=== PATIENT | male | born 1945 | race Caucasian/White ===

== ENCOUNTER 2023-03-31 12:25 | Outpatient (REF) | payer MEDICARE, SELFPAY ==
--- NOTE | ~2023-03-31 | XR_ITS ---
EXAMINATION: XR AP STANDING KNEES, BILATERAL XR KNEE, LEFT CLINICAL INFORMATION: Knee pain. COMPARISON: None. TECHNIQUE: AP standing view of both knees and 2 views (lateral and sunrise) of the left knee. FINDINGS: Patient status post left total knee arthroplasty. Hardware appears intact. No acute fractures identified. No dislocation is evident. There is a small right knee effusion. Prominent vascular calcifications present. Medial and lateral joint space compartments of the right knee appear unremarkable. There is a 1 mm calcific density seen overlying the lateral joint space compartment of the right knee and on this single view, I cannot tell if this may represent vascular calcification versus possible loose body. XR/XR knee LT 2V IMPRESSION: Status post left total knee arthroplasty with small left knee effusion. 1 mm calcific density seen only on AP view of the right knee overlying the lateral joint space compartment which may be within the soft tissues or possible loose body.
--- NOTE | ~2023-03-31 | XR_ITS ---
EXAMINATION: XR AP STANDING KNEES, BILATERAL XR KNEE, LEFT CLINICAL INFORMATION: Knee pain. COMPARISON: None. TECHNIQUE: AP standing view of both knees and 2 views (lateral and sunrise) of the left knee. FINDINGS: Patient status post left total knee arthroplasty. Hardware appears intact. No acute fractures identified. No dislocation is evident. There is a small right knee effusion. Prominent vascular calcifications present. Medial and lateral joint space compartments of the right knee appear unremarkable. There is a 1 mm calcific density seen overlying the lateral joint space compartment of the right knee and on this single view, I cannot tell if this may represent vascular calcification versus possible loose body. XR/XR knee standing BI IMPRESSION: Status post left total knee arthroplasty with small left knee effusion. 1 mm calcific density seen only on AP view of the right knee overlying the lateral joint space compartment which may be within the soft tissues or possible loose body.
== END 2023-03-31 12:26 | disposition home or self-care (01) ==
LOC: HO.HOSX 12:25
PROVIDERS: PCP Internal Medicine; Visit Provider Orthopaedic Surgery
DX: M25.511 Pain in right shoulder (principal); M25.811 Other specified joint disorders, right shoulder; M17.0 Bilateral primary osteoarthritis of knee; Z79.899 Other long term (current) drug therapy
CPT/HCPCS: 20610; 73560; 73565; J3301

== ENCOUNTER 2023-06-18 09:40 | Outpatient (AMB) | payer OTHER, SELFPAY ==
--- NOTE | 2023-06-18 09:42 | A.OFFVIS_ITS ---
Intake Intake Visit Reasons: OV-Right shoulder injection-last injection 03/31/23 Intake Note: Pt presents to the office today for a right shoulder injection. Patients last injection was 03/31/23. Pt states after his last injection he felt relief but within the past week it has started to get uncomfortable especially when he sleeps on that shoulder. The patient states that he did undergo right shoulder surgery by Dr. Garg many years ago. He got fairly good relief from that surgery. He reports stiffness when trying to lift his right hand above shoulder height. He has done physical therapy which aggravated his pain. He has also tried Tylenol and anti-inflammatory medicines which gave him minimal relief. Allergies erythrosine sodium [Erythrosine] Allergy (Unknown, Unverified 06/18/23 09:42) UNKNOWN Medication List - Last Reconciled 06/18/23 by Ubaldo Diehl MD tamsulosin 0.4 mg PO DAILY [facility] Surgical History History of left knee replacement (04/14/22) Social History (Updated 06/18/23 @ 10:00 by Barbara Reyes MA) Household Members: Spouse Housing: House Alcohol intake: never Patient Tobacco Use Status: Never used Tobacco Use of substances other than those prescribed or required for medical reasons: No service: Yes ([employer]) Current occupational status: retired Physical Exam Const Other: Well-nourished well-developed very friendly male awake alert and oriented x3 in no acute distress Extrem Other: Bilateral upper extremity examination shows good capillary refill, no skin lesions noted, normal sensation light touch Right shoulder examination shows decreased passive and active range of motion when compared to his left shoulder, 5/5 strength with supraspinatus testing, positive impingement signs, tenderness over his acromioclavicular joint, no instability Office Procedures Joint Injection/Drain Joint Injection/Drain Primary Site: right shoulder Prep: site was prepped using aseptic technique Injected: 40 mg of, Kenalog and 1% plain lidocaine Procedure: The patient tolerated the procedure well Coding 74054 - Large joint Procedure code (CPT) selection complete Results Reviewed Results Reviewed: 06/18/23 10:22 Lidocaine HCl 2 % MPF [Xylocaine 2 % MPF] 5 ml .ROUTE .STK-MED ONE Triamcinolone Acetonide [Kenalog-40] 40 mg .ROUTE .STK-MED ONE X-rays of the patient's right shoulder show moderate glenohumeral joint degenerative changes, a type 2 acromion, severe acromioclavicular joint narrowing, no acute bony abnormalities Assessment & Plan Assessment & Plan (1) Impingement of right shoulder: Code(s): M25.811 - Other specified joint disorders, right shoulder Plan: Mr. Schrader presents with progressively worsening right shoulder pain and stiffness due to impingement syndrome, acromioclavicular joint arthritis, glenohumeral joint arthritis and adhesive capsulitis. I had a lengthy discussion with the patient regarding the treatment options. The risks and benefits of a cortisone injection were discussed at length with the patient. The patient wished to proceed. He tolerated the injection well. He will continue with his home stretching program to prevent further stiffness. He will follow up with me on an as-needed basis should his symptoms not plateau at an unacceptable level over the next few months. If he fails continued non operative treatments we will further discuss the risks and benefits of right shoulder surgery. That surgery would most likely involve right shoulder diagnostic arthroscopy with distal clavicle excision, acromioplasty, capsular release and manipulation under anesthesia. Feel free to call me at any time should questions regarding his orthopedic management arise. I spent 22 minutes in reviewing the patient's records and imaging studies, seeing the patient and documenting in the medical record. Orders: Orders XR shoulder RT min 2V Today M25.511 - Pain in right shoulder AMB Joint Injection/Aspiration Today M25.811 - Other specified joint disorders, right shoulder Coding Level of Care Code Est Pt Level 2 (80859) Diagnoses Impingement of right shoulder M25.811 CPT Codes Coding - Large joint: 60218 - Large joint ([id number])
== END 2023-06-18 10:40 | disposition home or self-care (01) ==
PROVIDERS: PCP Internal Medicine; Visit Provider Orthopaedic Surgery
DX: M25.811 Other specified joint disorders, right shoulder (principal)
CPT/HCPCS: 20610; 99214

== ENCOUNTER 2023-06-18 17:18 | Outpatient (REF) | payer OTHER, SELFPAY ==
--- NOTE | ~2023-06-18 | XR_ITS ---
EXAMINATION: XR SHOULDER, RIGHT CLINICAL INFORMATION: Pain. COMPARISON: None available. TECHNIQUE: AP neutral and scapular Y views of the right shoulder are submitted. FINDINGS: There is bony demineralization. The glenohumeral joint is intact and shows moderately severe osteoarthritic change. There is widening of the acromioclavicular interval to 1.5 cm. The coracoclavicular interval is intact. No fracture or dislocation is seen. No soft tissue calcifications or foreign body is seen. There is no right pneumothorax. XR/XR shoulder RT min 2V IMPRESSION: 1. Findings are consistent with a right acromioclavicular separation injury. 2. There is moderately severe osteoarthritic change of the right glenohumeral joint.
== END 2023-06-18 17:19 | disposition home or self-care (01) ==
LOC: HO.HOSX 17:18
PROVIDERS: Visit Provider Orthopaedic Surgery
DX: M25.511 Pain in right shoulder (principal); M25.811 Other specified joint disorders, right shoulder; Z79.899 Other long term (current) drug therapy
CPT/HCPCS: 20610; 73030; J3301

== ENCOUNTER 2025-04-25 10:49 | Outpatient (AMB) | payer OTHER, SELFPAY ==
--- OUTSIDE RECORDS SUMMARY | 2024-11-03 09:45 | XMS_ITS ---
Author Organization [facility] Address [address] [place] [phone] Care Team Providers Care Counseling Services Director Name Role Phone Nato Barragan Primary Care Provider REASON FOR VISIT 2m f/u moca Encounters Encounter Location Date Provider Diagnosis Nato Barragan MD [address] [facility] [address] [place] [phone] 11/03/2024 Nato Barragan Plan Of Treatment Next Appt Details Provider Name:Nato Barragan , 05/15/2025 02:00:00 PM, [address] [place] [address], [phone], Provider Name:Nato Barragan , 09/06/2025 11:00:00 AM, [address] [place] [address], [phone], Progress Notes * Fabian SCOTT JrDOB: 1945 (80 yo M)Acc No.[id number]:11/03/2024 Progress Notes Patient: Bakari Fabian QUINTANILLA Jr Provider: Christaine Barragan MD :1945 A ge:79 Y S ex:Male Date:11/03/2024 Address:[address] [place] [address] [place], [id number] Subjective: * Chief Complaints: * 1 . [...] Electronic signature of Kaelyn Barragan MD on 04/25/2025 at 12:05 PM EDT Sign off status: Pending * Provider: Christiane Barragan MD Date: 0 11/03/2024 Generated for Wenceslao garcia/Manolo/Missyitting on: 0 04/25/2025 12:05 PM EDT
--- NOTE | 2025-04-25 10:51 | A.OFFVIS_ITS ---
Vital Signs 04/25/25 10:56 Height 5 ft 9 in Weight 174 lb BMI 25.7 Intake Visit Reasons: Right shoulder pain and stiffness Intake Note: Fabian is an 80 year old male who presents with complaints of right shoulder pain and stiffness. He describes his pain as sharp in nature. His pain has gotten worse over the last few years in spite of continued non operative treatments. He has failed the last 6 weeks of conservative treatment which has included Tylenol, anti-inflammatory medicines, a home exercise program and physical therapy exercises. He has had multiple injections in the past. The most recent injection gave minimal relief. At this point his right shoulder pain and stiffness or interfering with his activities of daily living and his ability to sleep well through the night. Allergies erythrosine sodium (Erythrosine) Allergy (Unknown, Verified 04/25/25 10:53) UNKNOWN Medication List - Last Reconciled 04/25/25 by Ubaldo Diehl MD amoxicillin 2,000 mg (4 x 500 mg) PO ONCE 21 days diclofenac sodium 75 mg PO BID tamsulosin 0.4 mg PO DAILY [facility] Surgical History History of left knee replacement (04/14/22) Social History Household Members: Spouse Housing: House Alcohol intake: never Patient Tobacco Use Status: Never used Tobacco service: Yes ([employer]) Current occupational status: retired Physical Exam Vital Signs: BMI result Body Mass Index 25.7 Const Other: Well-nourished well-developed very friendly male awake alert and oriented x3 in no acute distress Extrem Other: Right shoulder examination shows decreased active and passive range of motion when compared to his left shoulder, 4+ out of 5 strength with supraspinatus testing, positive impingement signs, tenderness over his acromioclavicular joint, no instability Results Reviewed Results Reviewed: X-rays of the patient's right shoulder show severe acromioclavicular joint narrowing, moderate glenohumeral joint degenerative changes, a type 2 acromion, no acute bony abnormalities Assessment & Plan Assessment & Plan (1) Impingement of right shoulder: Code(s): M25.811 - Other specified joint disorders, right shoulder Category: Medical Plan Mr. Schrader presents with progressively worsening right shoulder pain and stiffness due to impingement syndrome, acromioclavicular joint arthritis, glenohumeral joint arthritis and adhesive capsulitis. I had a lengthy discussion with the patient regarding the treatment options. He wishes to hold off on total shoulder replacement surgery for as long as possible. I agree with this plan. We did discuss the risks and benefits of right shoulder arthroscopic surgery. He wishes to proceed. He does understand that he may not get 100% relief of his symptoms depending on the severity of his glenohumeral joint degenerative changes. Surgery will involve right shoulder arthroscopic distal clavicle excision, right shoulder arthroscopic acromioplasty, right shoulder arthroscopic capsular release and right shoulder manipulation under anesthesia. The patient will follow-up as instructed. Feel free to call me at any time should questions regarding his orthopedic management arise. I spent 21 minutes in reviewing the patient's records and imaging studies, seeing the patient and documenting in the medical record. Coding Level of Care Code Est Pt Level 3 (07506) Complex EM visit Add On G2211 Diagnoses Impingement of right shoulder M25.811
[2025-04-25 10:56] VITALS: BMI 25.7
--- OUTSIDE RECORDS SUMMARY | 2025-04-25 12:06 | XMS_ITS | Patient Health Record ---
Author Organization [facility] Address [address] [facility] [place] [address] Care Team Providers Care Precision Machine Operator Name Role Phone Nato Barragan MD Primary Care Provider Unavail able Steven Willett Unavailable [phone] Reason For Referral No Information Medications Medication SIG (Take, Route, Frequency, Duration) Notes Start Date End Date Status Tamsulosin HCl Activ e Diclofenac Sodium 75 MG 1 tablet as need ed with food Orally Twice a day; Duration: 30 07/19/2024 Not-Taking Diclofenac Sodium 75 MG 1 tablet with fo od Orally Twice a day; Duration: 30 days 12/08/2024 Active Omeprazole Active Social History Tobacco Use: Social History Observation Description Date Details (start date - stop date) Former Smoker NA - NA Tobacco Use/Smoking Question Answer Notes Are you a: former smoker Additional Findings: Tobacco Non-User Current no n-smoker Alcohol Screen Question Answer Notes Did you have a drink containing alcohol in the p ast year? No Points 0 Interpretation Negative Tobacco use other than smoking: Question Answer Notes Are you an other tobacco user? No Problems Problem Type SNOMED Code ICD Code Onset Dates Problem Status W/U Status Risk Notes Problem Hallux valgus of right foot (0863925062) Hallux valgus of right foot (M20.11) Active confirmed Problem Hallux valgus of left foot (3036803442) Hallux valgus of left foot (M20.12) Active confirmed Vital Signs Height 5 ft 9 in in 08/09/2024 Weight 168 lbs 08/09/2024 BMI 24.81 kg/m2 08/09/2024 Encounters Encounter Location Date Provider Diagnosis [facility] [address] 07/19/2024 Steven Willett Hallux valgus of left foot M20.12 ; Hallux valgus of right foot M20.11 ; Other bursitis, not elsewhere classified, left ankle and foot M71.572 ; Other bursitis, not elsewhere classified, right ankle and foot M71.571 ; Pain in left foot M79.672 and Right foot pain M79.[address] [facility] [phone] 08/09/2024 Steven Willett Hallux valgus of left foot M20.12 ; Hallux valgus of right foot M20.11 ; Pain in left foot M79.672 and Right foot pain M79.671 [facility] [address] [place] [address] 07/08/2024 Steven Willett [address] [address] 12/08/2024 Steven Willett [facility] [address] [place] [phone] 12/12/2024 Steven Willett Assessments Encounter Date Diagnosis (ICD Code) Assessment Notes Treatment Notes Treatment Clinical Notes Section Notes 07/19/2024 Hallux valgus of right foot (ICD-10 - M20.11) 07/19/2024 Hallux valgus of left foot (ICD-10 - M20.12) 08/09/2024 Hallux valgus of right foot (ICD-10 - M20.11) 08/09/2024 Hallux valgus of left foot (ICD-10 - M20.12) 07/19/2024 Other bursitis, not elsewhere classified, left ankle and foot (ICD-10 - M71.572) 08/09/2024 Pain in left foot (ICD-10 - M79.672) 08/09/2024 Right foot pain (ICD-10 - M79.671) 07/19/2024 Other bursitis, not elsewhere classified, right ankle and foot (ICD-10 - M71.571) 07/19/2024 Pain in left foot (ICD-10 - M79.672) 07/19/2024 Right foot pain (ICD-10 - M79.671) 08/09/2024 Other Pt d/c diclofenac after 2 days that I had prescribed secondary to advice from PCP. Plan Of Treatment No Information Insurance Providers Payer Name Payer Address Payer Phone Subscriber Number Group Number Insured Name Patient Relationship to Insured Coverage Start Date Coverage End Date [employer] [place] [employer]vantage [facility] [address] [place] [address] [phone] [id number] Fabian Last Self - patient is the insured Medical (General) History Medical History History ICD Code Arthritis Back,Hip,and Knee pain Broken bones Cataracts Numbness Reflux ( GERD) sinusitis Measles Mumps Chicken pox Joint implants/screws Spondylosis Radiculopathy Surgical History Surgery Date(Month/Year) Fracture Tibia 1974 Torn Tendon Right Wrist 1979 [employer]ocate [employer] Nerve Right Elbow Deviated Septum Repair GERD Hiatal Hernia 2000 Total Hip Replacement L & R 07/10/2022,0 04/10/2011 Lumbar Fusion Impingement of rotator cuff, right Repair of 2 abdominal Hernias 2015,2016 Torn Retina Repair Chalazion Repair Right Eyelid Total Knee Replacement 2020 cataract surgery
--- OUTSIDE RECORDS SUMMARY | 2025-04-25 12:06 | XMS_ITS | Clinical Summary ---
Author Organization [facility] Address [address] [place] [address] Care Team Providers Care Mine Car Mechanic Name Role Phone Nato Barragan MD Primary Care Provider Allergies No known active allergies Medications Medication Sig Dispensed Refills Start Date End Date Status omeprazole (PriLOSEC) 20 MG capsule Take 20 mg by mouth daily. 0 Active aspirin EC 81 MG tablet Take 81 mg by mouth daily. 0 Active baclofen (LIORESAL) 10 MG tablet baclofen 10 mg tablet 0 Active celecoxib (CeleBREX) 200 MG capsule celecoxib 200 mg capsule 0 Active gabapentin (NEURONTIN) 300 MG capsule gabapentin 300 mg capsule 0 Active lidocaine (LIDODERM) 5 % lidocaine 5 % topical patch Apply 1 patch by transdermal route once daily (may wear up to 12hours.) 0 Active predniSONE (DELTASONE) tablet 10 mg prednisone 10 mg tablet 0 Active sulindac (CLINORIL) 200 MG tablet sulindac 200 mg tablet TK 1 T PO BID WITH FOOD 0 Active tiZANidine (ZANAFLEX) 2 MG tablet tizanidine 2 mg tablet TK 1 T PO Q NIGHT FOR 3 DAYS THEN INCREASE TO 1 T PO BID 0 Active clotrimazole-betame thasone (LOTRISONE) cream clotrimazole-betame thasone 1 %-0.05 % topical cream 0 Active gentamicin (GARAMYCIN) 0.3 % ophthalmic solution gentamicin 0.3 % eye drops USE 1 DROP IN EACH EYE Q 2 H FOR 24 H THEN TID FOR 6 DAYS 0 Active meclizine (ANTIVERT) 25 MG tablet 0 05/28/2021 Active ciprofloxacin (CIPRO) 500 MG tablet 0 07/29/2021 Active tamsulosin (FLOMAX) 0.4 MG CAPS 0 08/05/2021 Active amoxicillin (AMOXIL) 500 MG tablet Take 4 tabs 1 hour prior to dental appointment 20 tablet 3 04/29/2022 Active oxyCODONE (ROXICODONE) 5 MG immediate release tablet Take 1-2 tabs every 8-10 hours as needed for pain 30 tablet 0 05/28/2022 Active oxyCODONE (ROXICODONE) 5 MG immediate release tablet Take 1 tab every 8 hours as needed for pain 35 tablet 0 06/10/2022 Active Active Problems Problem Noted Date Diagnosed Date Lumbar back pain with radicu lopathy affecting left lower extremity 03/14/2021 Postoperative follow-up 01/08/2021 Traumatic tear of medial men iscus of knee, left, initial encounter 09/07/2020 Patellofemoral arthritis of left knee 09/07/2020 Arthritis of right glenohumeral joint 11/08/2019 Arthritis of right glenohumeral joint 04/06/2019 Family History Medical History Relation Name Comments Hypertension Father Diabetes Mother Heart disease Mother Hypertension Sister Relation Name Status Comments Father Mother Sister Social History Tobacco Use Types Packs/Day Years Used Date Smoking Tobacco: Former Cigarettes Q uit: 1968 Smokeless Tobacco: Never Alcohol Use Standard Drinks/Week Comments No 0 (1 standard drink = 0.6 oz pur e alcohol) Sex and Gender Information Value Date Recorded Sex Assigned at Not on file Gender Identity Not on file Sexual Orientation Not on file Job Start Date Occupation Industry Not on file Not on file Not on file Last Filed Vital Signs Vital Sign Reading Time Taken Comments Blood Pressure - - Pulse - - Temperature - - Respiratory Rate - - Oxygen Saturation - - Inhaled Oxygen Concentration - - Weight 80.7 kg (178 lb) 03/22/2021 9:26 AM EDT Height 172.7 cm (5' 8 ) 03/22/2021 9:26 AM EDT Body Mass Index 27.06 03/22/2021 9:26 AM EDT Plan of Treatment Health Maintenance Due Date Last Done Comments COVID-19 Vaccine (#1) 1945 Depression Screening 1955 Preventative Health Evaluation 1961 DTap / Tdap / Td (1 - Tdap) 1962 Shingrix-Zoster Vaccine (1 of 2) 1993 Fall Risk Assessment 2008 Pneumococcal Vaccine (1 of 1 - PCV) 2008 RSV Adult > 60+ Yrs or Pregn ant (1 - 1-dose 75+ series) 2018 Influenza Vaccine (#1) 2025 Hepatitis B Vaccines Aged Out No long er eligible based on patient's age to complete this topic RSV Ped < 20 months Aged Out No longe r eligible based on patient's age to complete this topic Care Teams Mine Car Mechanic Relationship Specialty Start Date End Date Nato Barragan MD [address] [address] PCP - General Internal Medicine 03/10/19
--- OUTSIDE RECORDS SUMMARY | 2025-04-25 12:06 | XMS_ITS ---
Author Name [facility] Organization Unknown Encounters Encounter Type Encounter Reason Primary Diagnosis Location Date Ambulatory [facility] 02/23/2023 Ambulatory [facility] 01/26/2023
--- OUTSIDE RECORDS SUMMARY | 2025-04-25 12:06 | XMS_ITS | Patient Health Record ---
Author Organization [facility] Billing Info Address [address] [place] [id number] Support Name Relationship Address Phone Fabian Schrader Jr Guarantor Unknown Reason For Referral No Information Problems Problem Type SNOMED Code ICD Code Onset Dates Problem Status W/U Status Risk Notes Problem 27911089 Impacted cerumen (380.4) Active confirmed Migrated-Pr oblemList-3 [facility]- 01/13/2014 Plan Of Treatment No Information Insurance Providers Payer Name Payer Address Payer Phone Subscriber Number Group Number Insured Name Patient Relationship to Insured Coverage Start Date Coverage End Date [place]ARE [place] PART B [address] [facility] A[employer] VEGA [id number] Fabian Schrader Jr Self - patient is the insured 3 3 [employer] [facility]ICARE [facility] [place] T [address] [address] [place], [place] [id number] Fabian Schrader Jr Self - patient is the insured 3 3
--- OUTSIDE RECORDS SUMMARY | 2025-04-25 12:06 | XMS_ITS | Data Portability ---
Author Organization [facility] PAIN OFFICE Address [address] [facility],[address] [place] [address] Care Team Providers Care Interior Design Assistant Name Role Phone MARYA YOUNG Primary Care Provider Assessment Encounter Date Assessment Date Assessment LastModified by Organization Details LastModified Time 12/05/2014 12/05/2014 Fabian Schrader is a 69 year old man with complaints of pain and numbness in the anterior aspect of his left thigh. He is S/P two back surgeries. EMG shows bilateral left more than right chronic L4-S1 radiculopathy. A left lateral femoral cutaneous mononeuropathy cannot be ruled out. Xray of his Lumbar spine shows minimal instability across T12-L1 , L1-2 and L2-L3. Small armijo rods with screws between L4-S1 is present. Multilevel degenerative disc disease is present.He is here for a follow up after aquatic physical therapy. He states he has been having increased pain in his right lower extremity after physical therapy. We reviewed various options. He is interested in trialing Gralise . I have given him a sample and detailed instruction on taking the medication. He will call in a week and will follow up in one month to assess the benefits. I have also advised him to discontinue aquatic PT presently. [email or web address] Not available 12/08/2014 15:53:20 02/15/2015 02/15/2015 Fabian Schrader is a 69 year old man with complaints of pain and numbness in the anterior aspect of his left thigh. He is S/P two back surgeries. EMG shows bilateral left more than right chronic L4-S1 radiculopathy. A left lateral femoral cutaneous mononeuropathy cannot be ruled out. Xray of his Lumbar spine shows minimal instability across T12-L1 , L1-2 and L2-L3. Small armijo rods with screws between L4-S1 is present. Multilevel degenerative disc disease is present.He is here for a follow up after trialing gralise 600mg 2 tablets with the evening meal. His insurance will not cover the medication despite appeals. We discussed other options . 1. Tizanidine - 2mg bid 2. Topamax is also another option. He was given a weaning schedule for the gralise. [email or web address] Not available 02/16/2015 11:42:43 03/14/2015 03/14/2015 Fabian Schrader is a 70 year old man with complaints of pain and numbness in the anterior aspect of his left thigh. He is S/P two back surgeries. EMG shows bilateral left more than right chronic L4-S1 radiculopathy. A left lateral femoral cutaneous mononeuropathy cannot be ruled out. Xray of his Lumbar spine shows minimal instability across T12-L1 , L1-2 and L2-L3. Small armijo rods with screws between L4-S1 is present. Multilevel degenerative disc disease is present.He is here for a follow up . He states his pain is presently tolerable and he defers from further membrane stabilizer trials. He has pain benefit from Lidoderm patches. I will prescribe the same for him. He will follow up as needed. [email or web address] Not available 03/14/2015 11:28:13 04/25/2016 04/25/2016 aFbian Schrader is [id number] old man with new onset right sided low back pain radiating into the right groin and buttock region. On exam ,he has tenderness in the Right sacroiliac joint with a positive Obi's test, Amarilis's and ASIS test.Xray of his Lumbar spine shows minimal instability across T12-L1 , L1-2 and L2-L3. Small armijo rods with screws between L4-S1 is present . Trial of Right sacroiliac joint injection under fluoroscopic guidance was recommended. The risks and benefits of the procedure were discussed in detail. He wishes to proceed. An appointment has been booked for the same. He needs a regional dedicated truck driver on the day of the procedure. I will also order X-rays of the pelvis. Addendum: X-ray of the Pelvis shows mild degenerative changes of the sacroiliac joint and stable intact bilateral hip arthroplasties. [email or web address] Not available 04/28/2016 14:03:16 05/13/2016 05/13/2016 Fabian Schrader is [id number] old man with new onset right sided low back pain radiating into the right groin and buttock region. On exam ,he has tenderness in the Right sacroiliac joint with a positive Obi's test, Amarilis's and ASIS test.Xray of his Lumbar spine shows minimal instability across T12-L1 , L1-2 and L2-L3. Small armijo rods with screws between L4-S1 is present . X-ray of the Pelvis shows mild degenerative changes of the sacroiliac joint and stable intact bilateral hip arthroplasties. He is here for a trial of Right sacroiliac joint injection under fluoroscopic guidance. The risks and benefits of the procedure were discussed in detail. He wishes to proceed. He will follow up in four weeks. [email or web address] Not available 05/13/2016 14:28:09 Plan of Treatment Reminders Order Date Submit Date Provider Last Modified By Organization Details Last Modified Time Details Appointments None recorded. Lab None recorded. Referral None recorded. Procedures None recorded. Surgeries None recorded. Imaging None recorded. Medication Orders lidocaine 5 % topical patch 2014 015 [id number], [address] [place] [address], [id number], 6 10:32:58 tizanidine 2 mg tablet 2014 015 [id number], [address] [place] [address], [id number], 5 10:07:37 Patient TargetsNo targets recorded. Patient Instructions Encounter Date Encounter Id Patient Instructions Last Modified By Organization Details Last Modified Time 12/05/2014 [id number] He was advised against bed rest lasting longer than four days and to continue activities as tolerated. [email or web address] Not available 12/08/2014 15:50:10 02/15/2015 [id number] He was advised against bed rest lasting longer than four days and to continue activities as tolerated. [email or web address] Not available 02/16/2015 11:38:27 03/14/2015 [id number] He was advised against bed rest lasting longer than four days and to continue activities as tolerated. tmanikantan Not available 03/14/2015 11:25:13 04/25/2016 [id number] He was advised against bed rest lasting longer than four days and to continue activities as tolerated. [email or web address] Not available 04/28/2016 14:03:38 05/13/2016 [id number] He was advised against bed rest lasting longer than four days and to continue activities as tolerated. [email or web address] Not available 05/13/2016 14:25:31 Reason for Referral None Reported. Results Created Date Observation Date Name Description Value Unit Range Abnormal Flag Note LastModifiedBy Organization Detail LastModifiedTime 04/25/20 16 04/25/2016 XR, pelvi s, 1 or 2 view No observ ation record ed. [facility] [address] [place] [address], [place], [address], 05/13/2016 14:25:31 Result Notes None recorded. Problems Name Problem SNOMED Code Status Onset Date Resolution Date Notes Provider Name and Address Organization Details Recorded Time Lumbosacral spondylosis without myelopathy 80462676 Active Winsome salas MD [address] [facility] , [address], [place], [address], [place] [facility] 6 14:24:57 Lumbar post-laminecto my syndrome 160792010 Gentry salas MD [address] [facility] , [address], [place], [address], [place] [facility] 6 14:28:09 Meralgia paresthetica [id number] Gentry salas MD [address] [facility] , [address], [place], [address], [place] [facility] 6 14:24:57 Lumbosacral radiculitis [id number] Gentry salas MD [address] [facility] , [address], [place], [address], [place] [facility] 6 14:24:57 Inflammation of sacroiliac joint 47723416 Active Winsome salas MD [address] [facility] , [address], [place], [address], [place] [facility] 6 14:28:09 Problem Notes None recorded. Procedures Surgical History Date Name Laterality Status Provider Name and Address Organization Details Recorded Time 6 Sacroiliac Joint Steroid Injections, using Fluoroscopy completed Winsome Badlwin MD [address] [facility] , [address], [place], [address], [place] [facility] 05/13/2016 14:28:09 4 Lateral Femoral Cutaneous Nerve Block under ultrasound guidance completed Winsome Baldwin MD [address] [facility] , [address], [place], [address], [place] [facility] 10/23/2014 11:07:43 4 Lateral Femoral Cutaneous Nerve Block under ultrasound guidance completed Winsome Baldwin MD [address] [facility] , [address], [place], [address], [place] [facility] 09/20/2014 11:16:34 Lumbar Fusion completed Uzma Glover [place] [facility] 09/14/2014 10:13:23 Other completed Uzma Glover [place] [facility] 09/14/2014 10:14:54 Other completed Uzma Glover [place] [facility] 09/18/2014 15:52:52 Other completed Uzma Glover [place] [facility] 09/18/2014 15:52:52 Joint Replacement completed Uzma Glover [place] [facility] 09/18/2014 15:52:52 Other completed Uzma Glover [place] [facility] 09/18/2014 15:52:52 Other completed Uzma Glover [place] [facility] 09/18/2014 15:52:52 Other completed Uzma Glover [place] [facility] 09/18/2014 15:52:52 Imaging Results None recorded. Procedure Notes None recorded. Medical Equipment None Reported. Allergies No known drug allergies Medications Name Sig Start Date Stop Date Status Note LastModified by Organization Details LastModified Time celecoxib 200 mg capsule active Not Available Not Available Not Available amoxicillin 500 mg capsule active Not Available Not Available Not Available prednisone 10 mg tablet active Not Available Not Available Not Available tizanidine 2 mg tablet TK 1 T PO Q NIGHT FOR 3 DAYS THEN INCREASE TO 1 T PO BID active Not Available Not Available No t Available aspirin 81 mg tablet,delay ed release Take 1 tablet every day by oral route. active Not Available Not Available No t Available tramadol 50 mg tablet active Not Available Not Available No t Available hydromorphon e 2 mg tablet active Not Available Not Available Not Available gentamicin 0.3 % eye drops USE 1 DROP IN EACH EYE Q 2 H FOR 24 H THEN TID FOR 6 DAYS active Not Available Not Available No t Available baclofen 10 mg tablet active Not Available Not Available No t Available clotrimazole -betamethaso ne 1 %-0.05 % topical cream active Not Available Not Available Not Available lidocaine 5 % topical patch APPLY FOR 12 HOURS ON AND 12 HOURS OFF active Not Available Not Available No t Available gabapentin 300 mg capsule active Not Available Not Available Not Available omeprazole 20 mg capsule,dawna yed release Take 1 capsule every day by oral route. active Not Available Not Available No t Available sulindac 200 mg tablet TK 1 T PO BID WITH FOOD active Not Available Not Available No t Available Chioma C 500 mg-200 mg tablet Take by oral route. active Not Available Not Available No t Available Vitamin D3 daily active Not Available Not Av ailable Not Available krill oil daily active Not Available Not Felisa ilable Not Available Vita Allergy 180 mg tablet Take 1 tablet every day by oral route. active Not Available Not Available No t Available Gralise 600 mg tablet,exten ded release active PA initiat ed. (kf) PA denied and appeal. (kf) Md sent appeal. (kf) Not Available Not Available Not Available Multi Vitamin active Not Available Not Available Not Available Vitals Date Recorded Heart rate Oxygen saturation Oxygen saturation in Arterial blood by Pulse oximetry Systolic And Diastolic Provider Name and Address Organization Details Last Updated DateTime 12/05/2014 66 /min 98 % 98 % 142/70 mm[Hg] U[facility] Landers [facility] 5 15:26:20 Date Recorded Oxygen saturation Oxygen saturation in Arterial blood by Pulse oximetry Heart rate Systolic And Diastolic Provider Name and Address Organization Details Last Updated DateTime 02/15/2015 97 % 97 % 70 /min 143/90 mm[Hg] [facility] Landers [facility] 5 11:58:21 Date Recorded Oxygen saturation Oxygen saturation in Arterial blood by Pulse oximetry Heart rate Systolic And Diastolic Provider Name and Address Organization Details Last Updated DateTime 03/14/2015 99 % 99 % 87 /min 170/88 mm[Hg] Uzma Glover [facility] 5 10:07:37 Date Recorded Heart rate Oxygen saturation Oxygen saturation in Arterial blood by Pulse oximetry Systolic And Diastolic Provider Name and Address Organization Details Last Updated DateTime 04/25/2016 73 /min 97 % 97 % 131/84 mm[Hg] Uzma Glover [facility] 6 10:32:58 Date Recorded Heart rate Oxygen saturation Oxygen saturation in Arterial blood by Pulse oximetry Systolic And Diastolic Provider Name and Address Organization Details Last Updated DateTime 05/13/2016 67 /min 98 % 98 % 139/82 mm[Hg] Uzma Glover [facility] 6 11:05:55 Social History Question Answer Notes LastModified by Organizat ion Details LastModified Time Tobacco Smoking Status Former Smoker Quit x 40 years Not Available [facility] 07/20/2020 03:16:11 Which Illicit Or Recreational Drugs Have You Used? No [id number] Information not available 07/20/2020 Education 10 [facility] Information no t available 09/14/2014 Live Alone Or With Others? With Others And Son Information not available 09/14/2014 Marital Status Informatio n not available 09/14/2014 How Many Years Have You Smoked Tobacco? 17 [id number] Information not available 07/20/2020 Sex: Unknown Functional Status Question Answer Note LastModified by Organization D etails LastModified Time What is your level of alcohol consumption? None [id number] Information not available 07/20/2020 Are you currently employed? No [id number] Information not available 07/20/2020 Mental Status None recorded. Family History Relationship Description Onset Age of this Age Resolved Age Notes LastModified by Organization Details LastModified Time Mother Heart disease [email or web address] Not available 06/2016 14:25:13 Medical History Condition Response Arthritis Y Past Encounters Encounter ID Performer Location Encounter Start Date Encounter Closed Date Diagnosis/Indication Diagnosis SNOMED-CT Code Diagnosis ICD10 Code Diagnosis Note [id number] Winsome Baldwin MD PAIN OFFICE [address] [place] [address] 09/14/2014 09:45:09 09/18/2014 09:45:13 Lumbar post-laminectomy syndrome 489321374 Lumbosacra l radiculitis 70865782 Lumbosacra l spondylosis without myelopathy 54035235 Meralgia paresthetica 05958874 [id number] Winsome Baldwin MD PAIN OFFICE [address] [place] [address] 09/19/2014 14:26:51 09/20/2014 11:17:32 Lumbosacral spondylosis without myelopathy 94085371 Meralgia paresthetica 55656923 Lumbosacra l radiculitis 04621465 Lumbar post-laminectomy syndrome 970982774 [id number] Winsome Baldwin MD PAIN OFFICE [address] [place] [address] 10/02/2014 09:24:42 10/23/2014 11:09:17 Lumbosacral spondylosis without myelopathy 38062191 Meralgia paresthetica 47516444 Lumbosacra l radiculitis 77165726 Lumbar post-laminectomy syndrome 522834473 [id number] Winsome Baldwin MD PAIN OFFICE [address] [place] [address] 10/26/2014 10:36:47 10/26/2014 14:38:33 Lumbosacral spondylosis without myelopathy 76335323 Meralgia paresthetica 08265504 Lumbosacra l radiculitis 41972092 Lumbar post-laminectomy syndrome 458069837 [id number] Winsome Baldwin MD PAIN OFFICE [address] [place] [address] 12/05/2014 15:24:27 12/08/2014 15:53:31 Lumbosacral spondylosis without myelopathy 81432318 Meralgia paresthetica 88384528 Lumbosacra l radiculitis 12156650 Lumbar post-laminectomy syndrome 387341287 [id number] Winsome Baldwin MD [facility] PAIN OFFICE [address] [facility] [place] [address] 02/15/2015 11:31:59 02/16/2015 11:43:40 Lumbosacral spondylosis without myelopathy 11058712 Meralgia paresthetica 44883603 Lumbosacra l radiculitis 69943419 Lumbar post-laminectomy syndrome 841861010 [id number] Winsome Baldwin MD [facility] PAIN OFFICE [address] [facility] [place] [address] 03/14/2015 09:59:05 03/14/2015 11:28:40 Lumbosacral spondylosis without myelopathy 20002200 Meralgia paresthetica 40417876 Lumbosacra l radiculitis 09775798 Lumbar post-laminectomy syndrome 947364535 [id number] Winsome Baldwin MD [facility] PAIN OFFICE [address] [facility] [address] 04/25/2016 10:06:02 04/28/2016 14:03:59 Inflammation of sacroiliac joint 08473592 M46.1 Lumbar post-laminectomy syndrome 222328234 M96.1 [id number] Winsome Baldwni MD [facility] PAIN OFFICE [address] [facility] [address] 05/13/2016 08:40:56 05/13/2016 14:30:04 Inflammation of sacroiliac joint 54982446 M46.1 Lumbar post-laminectomy syndrome 796596287 M96.1 Health Concerns Section Related Observation LastModified by Organization Detai ls LastModified Time None Recorded Concern Status LastModified by Organization Details LastModified Time None Recorded Advance Directives Directive None Recorded Payers Insurance Date Sequence Insurance Name Policy Number Policy Armstrong Covered Member ID Armstrong Member ID Guarantor Name 05/10/2016 1 [place] [employer] Fabian Schrader Jr [id number] Fabian Schrader 05/10/2016 2 [place] [id number] Fabian Schrader Jr [id number] Fabian Macrina Notes Date Note Type Note Provider Name and Address Organization Details Recorded Time 12/05/2014 text/html He is here for a follow up. He states he has had 4 visits for aquatic physical therapy. He states he has improvement with his left lower extremity pain after being in the pool. He states he is now noticing increased pain in his right lower extremity after the aquatic PT. He has also been snow shovelling and lifting wood for his fireplace in his living room. He has some numbness in the anterior aspect of his left thigh. He has no history of bladder or bowel incontinence. Winsome Baldwin MD [address] [facility] , [address], [place], [address], [facility] 12/11/2014 08:53:15 02/15/2015 text/html He is here for a follow up. He has been taking Gralise 600mg two tablets with evening meal with good pain benefit. Unfortunately , his insurance will not cover the medication for him. I have appealed the decision and they will not cover the medication. He is here to discuss other options. He continues to have low back pain radiating into both lower extremities, left is greater than right. He has no history of bladder or bowel incontinence. Winsome Baldwin MD [address] [facility] , [address], [place], [address], [facility] 02/20/2015 14:57:12 03/14/2015 text/html He is here for a follow up . He states he had increased pain after weaning off Gralise . His pain is back to baseline now. He states his pain is currently tolerable. He has decided not to trial Tizanidine or Topamax due to side effects he read about online. He states he wants to be clear headed as possible. He is using Lidoderm patches he had at home and the patches have been beneficial for him. He states he is only having occasional muscle spasms and they last about 5 minutes and occur once or twice a week. He has no history of bladder or bowel incontinence. Winsome Baldwin MD [address] [facility] , [address], [place], [address], [facility] 03/29/2015 08:42:35 04/25/2016 text/html He is here for a follow up. He states he has new onset right sided low back pain which radiates into his right buttock region as well as his groin. He states he has been active and doing things around the house. The pain started spontaneously and is becoming greater. Twisting his low back worsens his pain. He has no history of bladder or bowel incontinence. He is S/P back surgery with fusion from L4-S1 levels and bilateral hip replacements. Winsome Baldwin MD [address] [facility] , [address], [place], [address], [place] [facility] 05/01/2016 10:21:25 05/13/2016 text/html He is here for a right sacroiliac joint injection under fluoroscopic guidance Winsome Baldwin MD [address] [facility] , [address], [place], [address], [place] [facility] 05/26/2016 15:36:15
--- OUTSIDE RECORDS SUMMARY | 2025-04-25 12:06 | XMS_ITS | Clinical Summary ---
Author Organization [facility] Address [address] [place] [phone] Phone Care Team Providers Care Bucket Wash Operator Name Role Phone Nato Barragan MD Primary Care Provider [phone] Surgical History Surgery Date Site/Laterality Comments ORIF TIBIA & FIBULA FRACTURES PROCEDURE:ORIF TIBIA & FIBULA FRACTURES WRIST SURGERY PROCEDURE:WRIST SURGERY ELBOW SURGERY PROCEDURE:ELBOW SURGERY HIATAL HERNIA REPAIR PROCEDURE:HIATAL HERNIA REPAIR BACK SURGERY PROCEDURE:BACK SURGERY SHOULDER SURGERY PROCEDURE:SHOULDER SURGERY;COMMENT:impingement or RC KNEE SURGERY PROCEDURE:KNEE SURGERY JOINT REPLACEMENT PROCEDURE:JOINT REPLACEMENT Medical History Medical History Date Comments Arthritis DX:Arthritis Family History Medical History Relation Name Comments Hypertension Father Diabetes Mother Heart disease Mother Hypertension Sister Relation Name Status Comments Father Mother Sister Social History Tobacco Use Types Packs/Day Years Used Date Smoking Tobacco: Former Cigarettes Q uit: 10/05/1967 Smokeless Tobacco: Never Alcohol Use Standard Drinks/Week Comments No 0 (1 standard drink = 0.6 oz pur e alcohol) Sex and Gender Information Value Date Recorded Sex Assigned at Not on file Legal Sex Male 1:31 PM EST Gender Identity Not on file Sexual Orientation Not on file Obstetrics History Plan of Treatment Health Maintenance Due Date Last Done Comments Zoster Vaccines (1 of 2) 1993 RSV Immunization Adult Patients (1 - 1-dose 75+ series) 2018 Cholesterol Screening (Lipid Panel) 09/09/2022 Falls Risk Assessment 09/09/2022 Medicare Annual Wellness Visit 09/09/2022 Social Influencers of Health Screening 09/09/2022 COVID-19 Vaccine ( season) 2024 Depression Screening 10/05/2024 Influenza Vaccine (#1) 2025 4, 08/13/2023, 07/31/2022, Additional history exists DTaP,Tdap,and Td Vaccines (2 - Td or Tdap) 08/13/2033 08/13/2023 Pneumococcal Vaccine: 50+ Years Completed 08/16/2024 HIB Vaccines Aged Out No longer eligi ble based on patient's age to complete this topic HPV Vaccines Aged Out No longer eligi ble based on patient's age to complete this topic Hepatitis A Vaccines Aged Out No long er eligible based on patient's age to complete this topic Hepatitis B Vaccines Aged Out No long er eligible based on patient's age to complete this topic IPV Vaccines Aged Out No longer eligi ble based on patient's age to complete this topic MMR Vaccines Aged Out No longer eligi ble based on patient's age to complete this topic Meningococcal ACWY Vaccine Aged Out N o longer eligible based on patient's age to complete this topic Meningococcal B Vaccine Aged Out No l onger eligible based on patient's age to complete this topic RSV Immunization Patients Under 20 months Aged Out No longer eligible based on patient's age to complete this topic Varicella Vaccines Aged Out No longer eligible based on patient's age to complete this topic Insurance [employer] Advance Directives Documents on File Type Date Recorded Patient 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
== END 2025-04-25 11:15 | disposition home or self-care (01) ==
LOC: HO.HOS 10:49
PROVIDERS: PCP Internal Medicine; Visit Provider Orthopaedic Surgery
DX: M25.811 Other specified joint disorders, right shoulder (principal)
CPT/HCPCS: 99213; G2211

== ENCOUNTER 2025-06-02 11:30 | Day surgery (SDC) | payer MEDICARE, SELFPAY ==
[2025-05-23 13:46] VITALS: BMI 26.8
[2025-06-02] MEDS: Lactated Ringers 1,000 ML 100 ML IVCONT (11:51)
[2025-06-02 11:56] VITALS: BMI 27.1
[2025-06-02 11:59] VITALS: BP 158/61; PULSE 74; RESP 18; TEMP 36.7; O2SAT 98
--- NOTE | 2025-06-02 12:15 | HO.ANESPROP2 ---
Documented by User: Hazel Yost NP 06/01/25 10:26 HPI - Anesthesia Eval Consult details Narrative: 80yo M for Right Shoulder Arthroscopy,distal clavicle excision,acromioplasty,capsular release,maniplatuion, 06/02/25 Medically optimized per PCP - required repeat BP check and home log (~130s systolic) [facility] Active Problems Active Problems: All Active Problems Right shoulder pain (Acute) Impingement of right shoulder (Acute) Arthritis of both knees (Acute) Past Medical History Medical History PONV (postoperative nausea and vomiting) Pre-diabetes BPH (benign prostatic hyperplasia) Chronic renal insufficiency Lumbar spondylolysis Idiopathic progressive neuropathy Hyperlipidemia Arthritis Surgical History Surgical History Hx of cataract extraction History of open reduction and internal fixation (ORIF) procedure Hx of elbow surgery History of surgery on wrist Hx of hernia repair Hx of nasal septoplasty History of lumbar fusion Hx of shoulder surgery Hx of bilateral hip replacements History of left knee replacement (04/14/22) Social History Social History Household Members: Spouse Housing: House Are you a primary animal care service worker to a significant other at home: No Do you presently have visiting nurse or other home services: No Alcohol intake: never Patient Tobacco Use Status: Former Tobacco user Tobacco use type: Cigarette Years Smoked: 15 Use of substances other than those prescribed or required for medical reasons: No Have you been hit, kicked, punched, or otherwise hurt by someone within the past year? If so, by whom?: No Spiritual Healthcare Practices: no Gnosticism Healthcare Practices: no Cultural Healthcare Practices: no Advance Directives Information Provided: Yes (as above noted) Advance Directives on File: No Poor oral hygiene: Yes service: Yes ([employer]) Current occupational status: retired Meds Allergies Allergy/AdvReac Type Severity Reaction Status Date / Time erythrosine sodium Allergy Unknown UNKNOWN Verified 06/02/25 11:48 (Erythrosine) Home Medications ?Medication ?Instructions ?Recorded ?Confirmed ?Last Taken ?Type diclofenac sodium 75 mg 75 mg PO BID 04/25/25 05/23/25 Unknown History tablet,delayed release multivitamin 1 tab PO DAILY 05/23/25 05/23/25 Unknown History omeprazole 20 mg capsule,delayed 20 mg PO DAILY 05/23/25 05/23/25 06/02/25 History release psyllium husk 3.4 gram/5.4 gram 1 tbsp PO DAILY 05/23/25 05/23/25 Unknown History oral powder (Metamucil) tamsulosin 0.4 mg capsule 0.4 mg PO QAM 05/23/25 05/23/25 Unknown History fluticasone propionate 50 1 spray intranasal BID 05/24/25 05/24/25 Unknown History mcg/actuation nasal spray,suspension ramipril 5 mg capsule 5 mg PO DAILY 05/31/25 05/31/25 06/02/25 History Exam Height,Weight and Vital Signs: Height 5 ft 7.5 in Weight 78.925 kg Pertinent Lab Results Pertinent Lab Results: A1C, BMP 05/16/25 from outside facility WNL Narrative Narrative: EKG 05/2025 NSR @ 65 Occasional PAC Assessment and Plan Assessment Anesthesia Assessment: Chart Reviewed Documented by User: Kalee Maguire DO 06/02/25 12:18 [facility] Past Medical History Medical History PONV (postoperative nausea and vomiting) Pre-diabetes BPH (benign prostatic hyperplasia) Chronic renal insufficiency Lumbar spondylolysis Idiopathic progressive neuropathy Hyperlipidemia Arthritis Family History Family history of problems with anesthesia: No Surgical History Surgical History Hx of cataract extraction History of open reduction and internal fixation (ORIF) procedure Hx of elbow surgery History of surgery on wrist Hx of hernia repair Hx of nasal septoplasty History of lumbar fusion Hx of shoulder surgery Hx of bilateral hip replacements History of left knee replacement (04/14/22) History of Problems with Anesthesia: Yes (PONV) Social History Social History Household Members: Spouse Housing: House Are you a primary animal care service worker to a significant other at home: No Do you presently have visiting nurse or other home services: No Alcohol intake: never Patient Tobacco Use Status: Former Tobacco user Tobacco use type: Cigarette Years Smoked: 15 Use of substances other than those prescribed or required for medical reasons: No Have you been hit, kicked, punched, or otherwise hurt by someone within the past year? If so, by whom?: No Spiritual Healthcare Practices: no Gnosticism Healthcare Practices: no Cultural Healthcare Practices: no Advance Directives Information Provided: Yes (as above noted) Advance Directives on File: No Poor oral hygiene: Yes service: Yes ([employer]) Current occupational status: retired [employer] Allergies Allergy/AdvReac Type Severity Reaction Status Date / Time erythrosine sodium Allergy Unknown UNKNOWN Verified 06/02/25 11:48 (Erythrosine) Home Medications ?Medication ?Instructions ?Recorded ?Confirmed ?Last Taken ?Type diclofenac sodium 75 mg 75 mg PO BID 04/25/25 05/23/25 Unknown History tablet,delayed release multivitamin 1 tab PO DAILY 05/23/25 05/23/25 Unknown History omeprazole 20 mg capsule,delayed 20 mg PO DAILY 05/23/25 05/23/25 06/02/25 History release psyllium husk 3.4 gram/5.4 gram 1 tbsp PO DAILY 05/23/25 05/23/25 Unknown History oral powder (Metamucil) tamsulosin 0.4 mg capsule 0.4 mg PO QAM 05/23/25 05/23/25 Unknown History fluticasone propionate 50 1 spray intranasal BID 05/24/25 05/24/25 Unknown History mcg/actuation nasal spray,suspension ramipril 5 mg capsule 5 mg PO DAILY 05/31/25 05/31/25 06/02/25 History Exam Exam Date and Time: 06/02/25 1215 Height,Weight and Vital Signs: Height 5 ft 7.5 in Weight 78.925 kg Vital Signs Temperature 98.1 F 06/02/25 11:59 Pulse Rate 74 06/02/25 11:59 Respiratory Rate 18 06/02/25 11:59 Blood Pressure 158/61 H 06/02/25 11:59 Pulse Oximetry 98 06/02/25 11:59 Oxygen Delivery Method Room Air 06/02/25 11:59 Temperature 98.1 F 06/02/25 11:59 Pulse Rate 74 06/02/25 11:59 Respiratory Rate 18 06/02/25 11:59 Blood Pressure 158/61 H 06/02/25 11:59 Pulse Oximetry 98 06/02/25 11:59 Oxygen Delivery Method Room Air 06/02/25 11:59 Airway Mallampati Class: II TM Dist: >3cm Neck ROM: Limited Loose/Missing/Broken Teeth: Yes (multiple broken teeth) Heart: S1S2 Lungs: CTAB Assessment and Plan Assessment Anesthesia Assessment: Anesthesia Plan Discussed and Chart Reviewed Final Anesthetic Review Family History of Problems with Anesthesia: No History of Problems with Anesthesia: Yes (PONV) NPO: Yes ASA Class: II Final Preanesthetic Review: No Changes in Pt Med Stat, Meds/Allgs Chart Reviewed, Consent Obtained/Reviewed, Anes Risks/Benef Reviewed and DNR Form (If Appl.) (MOLST form indicates DNI. Will be suspended during perioperative period and will resume upon discharge from PACU) Patient Risk: Low Procedure Risk: Intermediate Anesthetic Plan Anesthetic Plan: GA, Regional Block (Right brachial plexus block) and Agree w/ Assess. and Plan Disposition: Standard PACU
[2025-06-02 14:35] VITALS: BP 123/54; PULSE 65; RESP 16; TEMP 36.1; O2SAT 98
--- NOTE | 2025-06-02 14:35 | PM.OP ---
Brief Operative Note Date of Service: 06/02/25 Pre-op diagnosis: Right shoulder impingement syndrome, right shoulder adhesive capsulitis, right shoulder acromioclavicular joint arthritis Post-op diagnosis: other (Right shoulder impingement syndrome, right shoulder adhesive capsulitis) Procedure: Right shoulder arthroscopic acromioplasty, right shoulder arthroscopic anterior capsular release, right shoulder manipulation under anesthesia Implants: none Surgeon: Ubaldo Diehl MD Anesthesia: regional Was an Vascular Technologist Sonographer used for this Procedure?: No Estimated blood loss (mL): 10 Pathology: none sent Condition: stable Disposition: PACU
--- NOTE | 2025-06-02 14:36 | W.PM.OPN ---
Operative Note Operative Note Date of Service: 06/02/25 Narrative: After the patient was identified as Fabian Schrader Jr and his right shoulder was initialed by myself the patient was brought to the holding area where a right shoulder interscalene regional block was performed by the anesthesiologist in routine fashion. The patient was then brought to the operating room where general anesthesia was induced by the anesthesiologist in routine fashion. The patient was given 2 g of IV Ancef preoperatively for infection prophylaxis. Examination under anesthesia of the patient's right shoulder showed decreased passive range of motion when compared to the left shoulder. The patient's right shoulder had passive forward flexion to 120 degrees compared to 170 degrees, external rotation to 30 degrees compared to 60 degrees, and internal rotation to 40 degrees compared to 50 degrees. The patient was gently positioned in the beach chair position with all bony prominences well padded. The patient's right shoulder region and upper extremity were prepped and draped in sterile fashion. A formal time-out was completed. A #11 scalpel blade was used to make a posterior portal 2 cm inferior and 1 cm medial to the posterolateral corner of the acromion. Blunt trocar technique was used to enter the glenohumeral joint in routine fashion. An anterior portal was made just lateral to the coracoid process after proper positioning was confirmed using a spinal needle. Diagnostic arthroscopy showed diffuse grade 3 and 4 degenerative changes of the humeral head and glenoid articular surfaces. The articular surfaces were made smooth using the arthroscopic shaver. There was no evidence of rotator cuff tearing. The biceps tendon was not identified. There was inflammation of the anterior joint capsule consistent with adhesive capsulitis. The ArthroCare Wand was then used to perform an anterior capsular release between the inferior border of the bicipital groove and the superior border of the subscapularis tendon. The arthroscope was then placed from the posterior portal into the subacromial space. A lateral portal was made 2 fingerbreadths lateral to the anterior lateral corner of the acromion. The ArthroCare Wand was used to ablate soft tissues along the undersurface of the acromion as well as to excise the coracoacromial ligament. There was a sharp spur along the undersurface of the acromion which was removed using the hooded bur. The arthroscope was then placed into the lateral portal and the acromioplasty was completed with the bur in the posterior portal using the posterior aspect of the acromion as a cutting block. The ArthroCare Wand was then brought in through the anterior portal and was used to ablate soft tissues along the acromioclavicular joint and distal clavicle. The posterior and superior ligamentous structures were left intact. There was already a 10 mm gap at the acromioclavicular joint so no revision distal clavicle excision was indicated. Any remaining bursal tissue was removed using the arthroscopic shaver. The subacromial space was irrigated and then drained. All arthroscopic instruments were removed. A gentle manipulation under anesthesia was then performed. Full passive range of motion was attained. The 3 portals were closed with 3-0 nylon interrupted suture. The subacromial space was injected with Marcaine. Dry sterile dressing was placed over all incisions. The patient's right upper extremity was placed into a sling. The patient was awoken and extubated in the operating room. The patient was transferred to the recovery room in stable condition.
[2025-06-02 14:40] VITALS: BP 120/54; PULSE 47; RESP 16; O2SAT 98
[2025-06-02 14:45] VITALS: BP 117/44; PULSE 45; RESP 16; O2SAT 99
[2025-06-02 14:50] VITALS: BP 117/42; PULSE 47; RESP 16; O2SAT 99
[2025-06-02 15:05] VITALS: BP 128/50; PULSE 50; RESP 16; TEMP 36.2; O2SAT 95
== END 2025-06-02 15:50 | disposition home or self-care (01) ==
PROVIDERS: PCP Internal Medicine; Visit Provider Orthopaedic Surgery
PROC: (CPT 29805; principal; 2025-06-02 14:10)
DX: M75.41 Impingement syndrome of right shoulder (principal); M75.01 Adhesive capsulitis of right shoulder; M19.011 Primary osteoarthritis, right shoulder; M25.511 Pain in right shoulder; M25.611 Stiffness of right shoulder, not elsewhere classified; M25.811 Other specified joint disorders, right shoulder; Z88.8 Allergy status to other drugs, medicaments and biological substances; Z88.1 Allergy status to other antibiotic agents; Z96.652 Presence of left artificial knee joint
CPT/HCPCS: 29825; 29826; J0131; J0165; J0690; J0696; J1100; J2003; J2371; J2405; J2704; J2795; J3010

== ENCOUNTER → 2025-06-02 11:30 | Outpatient (BNV) | payer MEDICARE, SELFPAY | PROVIDERS: PCP Internal Medicine; Visit Provider Orthopaedic Surgery | DX: M75.41 Impingement syndrome of right shoulder (principal); M75.01 Adhesive capsulitis of right shoulder; M19.011 Primary osteoarthritis, right shoulder | CPT/HCPCS: 29823; 29826 ==

== ENCOUNTER 2025-06-15 12:35 | Outpatient (AMB) | payer OTHER, SELFPAY ==
--- OUTSIDE RECORDS SUMMARY | 2024-11-03 09:45 | XMS_ITS ---
Author Organization [facility] Address [address] [place] [phone] Care Team Providers Care Braille Duplicating Machine Operator Name Role Phone Nato Barragan Primary Care Provider REASON FOR VISIT 2m f/u moca Encounters Encounter Location Date Provider Diagnosis Nato Barragan MD [address] [facility] [address] [place] [phone] 11/03/2024 Nato Barragan Plan Of Treatment Next Appt Details Provider Name:Nato Barragan , 06/27/2025 10:00:00 AM, [address] [place] [address], [phone], Provider Name:Nato Barragan , 09/06/2025 11:00:00 AM, [address] [place] [address], [phone], Progress Notes * Fabian SCOTT JrDOB: 1945 (80 yo M)Acc No.[id number]:11/03/2024 Progress Notes Patient: aBkari Fabian QUINTANILLA Jr Provider: Christiane Barragan MD :1945 A ge:79 Y S ex:Male Date:11/03/2024 Address:[address] [place] [address] [place], [id number] Subjective: * Chief Complaints: * 1 . [...] Electronic signature of Kaelyn Barragan MD on 06/15/2025 at 04:46 PM EDT Sign off status: Pending * Provider: Christiane Barragan MD Date: 0 11/03/2024 Generated for Wenceslao garcia/Manool/Missyitting on: 0 06/15/2025 04:46 PM EDT
--- NOTE | 2025-06-15 12:39 | MHC.OFFVIS ---
Vital Signs 06/15/25 12:47 Height 5 ft 7.5 in Weight 174 lb BMI 26.8 Handedness Right Intake Visit Reasons: Rt Shld 06/02/25 Intake Note: Fabian is an 80 year old man who presents with complaints of mild to moderate discomfort in his right shoulder after undergoing right shoulder arthroscopic surgery on 06/02/2025. He continues with his home stretching program. He denies any fevers or chills. Allergies erythrosine sodium (Erythrosine) Allergy (Unknown, Verified 06/15/25 12:48) UNKNOWN Medication List - Last Reviewed 06/15/25 by DAYLIN Stevens amoxicillin 2,000 mg (4 x 500 mg) PO ONCE 21 days diclofenac sodium 75 mg PO BID fluticasone propionate 50 mcg/actuation 1 spray intranasal BID multivitamin 1 tab PO DAILY omeprazole 20 mg PO DAILY psyllium husk (Metamucil) 1 tbsp PO DAILY ramipril 5 mg PO DAILY tamsulosin 0.4 mg PO QAM PFSH Medical History PONV (postoperative nausea and vomiting) Pre-diabetes BPH (benign prostatic hyperplasia) Chronic renal insufficiency Lumbar spondylolysis Idiopathic progressive neuropathy Hyperlipidemia Arthritis Surgical History Hx of cataract extraction History of open reduction and internal fixation (ORIF) procedure Hx of elbow surgery History of surgery on wrist Hx of hernia repair Hx of nasal septoplasty History of lumbar fusion Hx of shoulder surgery Hx of bilateral hip replacements History of left knee replacement (04/14/22) Social History Household Members: Spouse Housing: House Are you a primary home care administrator to a significant other at home: No Do you presently have visiting nurse or other home services: No Alcohol intake: never Patient Tobacco Use Status: Former Tobacco user Tobacco use type: Cigarette Years Smoked: 15 service: Yes ([employer]) Current occupational status: retired Physical Exam Extrem Other: Right shoulder examination shows that the surgical incisions are healing well, no erythema, mild discomfort with range of motion, no instability Assessment & Plan Assessment & Plan (1) Right shoulder pain: Code(s): M25.511 - Pain in right shoulder Category: Medical Plan Fabian is doing well after undergoing right shoulder arthroscopic surgery on 06/02/2025. His sutures were removed and Steri-Strips placed over his incision. I did refill his prescription for oxycodone. He does not wish to go to formal physical therapy. He will continue with his home stretching program. He will contact me prior to his follow-up appointment in 2 months should any questions or concerns arise. Feel free to call me at any time should questions regarding his orthopedic management arise. Medications: New oxycodone Partial Fill upon patient request. 5 mg PO Q6H PRN 30 tabs 0RF pain Coding Level of Care Code Global (34340) Diagnoses Right shoulder pain M25.511
[2025-06-15 12:47] VITALS: BMI 26.8
--- OUTSIDE RECORDS SUMMARY | 2025-06-15 16:47 | XMS_ITS | Clinical Summary ---
Author Organization [facility] Address [address] [place] [phone] Phone Care Team Providers Care Glass Selector Name Role Phone Nato Barragan MD Primary Care Provider [phone] Surgical History Surgery Date Site/Laterality Comments ORIF [...] 09/09/2022 Social Influencers of Health Screening 09/09/2022 Depression Screening 10/05/2024 COVID-19 Vaccine ( season) 2025 Influenza Vaccine (#1) 2025 4, 08/13/2023, 07/31/2022, [...] Documents on File Type Date Recorded Patient Help Desk Analyst Expl anation Health Care Decision (hx) 04/14/2022 AD BA DIRECTIVE Health Care Decision (hx) 04/14/2022 AD BA DIRECTIVE Health Care Decision (hx) 04/14/2022 AD MEJIA DIRECTIVE Care Teams Glass Selector Relationship Specialty Start Date End Date Nato Barragan MD [address] [place] [address] PCP - General Internal Medicine 03/10/19
--- OUTSIDE RECORDS SUMMARY | 2025-06-15 16:47 | XMS_ITS | Patient Health Record ---
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 Metabolic Panel (14)-[id number] [phone] (Not yet reviewed by provider) Interpretation: Performing Lab:[facility] [place], [address] [facility], [place], Phone - [phone], Director - Sumit Notes/Report: Glucose 121 70-99 mg/dL BUN 16 8-27 mg/dL Creatinine 1.09 0.76-1.27 mg/dL eGFR 68 >59 mL/min/1.73 BUN/Creatinine Ratio 15 10-24 Sodium 141 134-144 mmol/L Potassium 3.8 3.5-5.2 mmol/L Chloride 104 96-106 mmol/L Carbon Dioxide, Total 18 20-29 mmol/L Calcium 9.3 8.6-10.2 mg/dL Protein, Total 6.9 6.0-8.5 g/dL Albumin 4.1 3.7-4.7 g/dL Globulin, Total 2.8 1.5-4.5 g/dL Bilirubin, Total 0.4 0.0-1.2 mg/dL Alkaline Phosphatase 98 44-121 IU/L AST (SGOT) 52 0-40 IU/L ALT (SGPT) 63 0-44 IU/L CR Chest Routine 2 Views Reviewed date:09/21/2024 12:06:40 PM Interpretation: Performing Lab: Notes/Report: IMGEAP Reviewed date:08/25/2024 04:43:58 PM Interpretation: Performing Lab: Notes/Report: See Note [facility], a member of [employer] HISTORY: The patient is an 79-year-old male with chronic cough. FINDINGS: PA and lateral radiographs of the chest demonstrate degenerative changes of the thoracic spine. Again seen is chronic right acromioclavicular joint separation as also demonstrated on prior studies most recently 04/12/2011. The cardiac silhouette is within normal limits. The aortic knob is calcified. The lungs and costophrenic angles are clear. IMPRESSION: No acute pulmonary disease. Code 64572 CT Teleradiology -------- FINAL REPORT -------- Dictated By: Patricio Hinson Dictated Date: 08/25/2024 10:26 ET Assigned Physician: Patricio Hinson Reviewed and Electronically Signed By: Patricio Hinson Signed Date: 08/25/2024 10:27 ET Workstation ID: [id number] Transcribed By: Self Edit Transcribed Date: 08/25/2024 10:26 ET Hemoglobin [id number] Reviewed date:05/29/2025 05:26:51 PM Interpretation: Performing Lab:[facility], [address] [facility], Phone - [phone], Director - Sumit Notes/Report: Hemoglobin A1c 5.4 4.8-5.6 % . Prediabetes: 5.7 - 6.4 Diabetes: >6.4 Glycemic control for adults with diabetes: <7.0 Urinalysis, Complete-[id number] Reviewed date:05/29/2025 05:26:52 PM Interpretation: Performing Lab:[facility] [place], [address] [facility], [place], Phone - [phone], Director - Sumit Notes/Report: Specific Justice 1.018 1.005-1.030 pH 5.5 5.0-7.5 Urine-Color Yellow Yellow Appearance Clear Clear WBC Esterase Trace Negative Protein Negative Negative/Trace Glucose Negative Negative Ketones Negative Negative Occult Blood Negative Negative Bilirubin Negative Negative Urobilinogen,Semi-Qn 0.2 0.2-1.0 mg/dL Nitrite, Urine Negative Negative Microscopic Examination See below: Micr oscopic was indicated and was performed. WBC 0-5 0 - 5 /hpf RBC None seen 0 - 2 /hpf Epithelial Cells (non renal) None seen 0 - 10 /hpf Casts None seen None seen /lpf Bacteria None seen None seen/Few Albumin/Creatinine Ratio,Uri ne-[id number] Reviewed date:05/29/2025 05:26:52 PM Interpretation: Performing Lab:[facility], [address] [facility], [place], Phone - [phone], [facility] Notes/Report: Creatinine, Urine 92.6 Not Estab. mg/dL Albumin, Urine 6.5 Not Estab. ug/mL Alb/Creat Ratio 7 0-29 mg/g creat Normal: 0 - 29 Moderately increased: 30 - 300 Severely increased: >300 Comp. Metabolic Panel (14)-3 Reviewed date:05/29/2025 05:26:52 PM Interpretation: Performing Lab:[facility], [address] [facility], [place], Phone - [phone], Director - MDy Notes/Report: Glucose 98 70-99 mg/dL BUN 23 8-27 mg/dL Creatinine 1.16 0.76-1.27 mg/dL eGFR 63 >59 mL/min/1.73 BUN/Creatinine Ratio 20 10-24 Sodium 140 134-144 mmol/L Potassium 3.8 3.5-5.2 mmol/L Chloride 104 96-106 mmol/L Carbon Dioxide, Total 18 20-29 mmol/L Calcium 9.3 8.6-10.2 mg/dL Protein, Total 6.9 6.0-8.5 g/dL Albumin 4.3 3.7-4.7 g/dL Globulin, Total 2.6 1.5-4.5 g/dL Bilirubin, Total 0.4 0.0-1.2 mg/dL Alkaline Phosphatase 106 44-121 IU/L AST (SGOT) 41 0-40 IU/L ALT (SGPT) 62 0-44 IU/L EKG Reviewed date:05/15/2025 02:40:37 PM Interpretation: Performing Lab: Notes/Report: ECGDiastolicBP 0 ECGHr 65 ECGPRInterval 204 ECGPWaveAxis 38 ECGQRSDuration 100 ECGQrsWaveAxis -23 ECGQTcInterval 408 ECGQTInterval 400 ECGSystolicBP 0 ECGTWaveAxis 19 RR_DiastolicBP 0 RR_MaxRRInterval 0 RR_MeanHR 0 RR_MeanRRInterval 0 RR_MinRRInterval 0 RR_NumBeats 0 RR_NumNormalBeats 0 RR_SystolicBP 0 CBC With Differential/Platel et-[id number] Reviewed date:08/21/2024 07:31:11 AM Interpretation: Performing Lab:[facility], [address] [facility], Phone - [phone], Director - MDJodry Notes/Report: WBC 7.9 3.4-10.8 x10E3/uL RBC 4.30 4.14-5.80 x10E6/uL Hemoglobin 13.4 13.0-17.7 g/dL Hematocrit 41.1 37.5-51.0 % MCV 96 79-97 fL MCH 31.2 26.6-33.0 pg MCHC 32.6 31.5-35.7 g/dL RDW 13.3 11.6-15.4 % Platelets 228 150-450 x10E3/uL Neutrophils 62 Not Estab. % Lymphs 18 Not Estab. % Monocytes 12 Not Estab. % Eos 6 Not Estab. % Basos 1 Not Estab. % Neutrophils (Absolute) 4.9 1.4-7.0 x10E3/uL Lymphs (Absolute) 1.4 0.7-3.1 x10E3/uL Monocytes(Absolute) 1.0 0.1-0.9 x10E3/uL Eos (Absolute) 0.5 0.0-0.4 x10E3/uL Baso (Absolute) 0.1 0.0-0.2 x10E3/uL Immature Granulocytes 1 Not Estab. % Immature Grans (Abs) 0.0 0.0-0.1 x10E3/uL Prostate-Specific Ag-[id number] Reviewed date:08/21/2024 07:31:11 AM Interpretation: Performing Lab:[facility], [address] [facility], [place], Phone - [phone], Director - Abhiy Notes/Report: Prostate Specific Ag 4.4 0.0-4.0 ng/mL Gabby ECLIA methodology. . According to the [place] [employer], Serum PSA should decrease and remain at undetectable levels after radical prostatectomy. The AUA defines biochemical recurrence as an initial PSA value 0.2 ng/mL or greater followed by a subsequent confirmatory PSA value 0.2 ng/mL or greater. Values obtained with different assay methods or kits cannot be used interchangeably. Results cannot be interpreted as absolute evidence of the presence or absence of malignant disease. Vitamin D, 00-[id number] Reviewed date:08/21/2024 07:31:11 AM Interpretation: Performing Lab:[facility], [address] [place] [address], Phone - [phone], Director - Sumit Notes/Report: Vitamin D, 25-Hydroxy 55.0 30.0-100.0 ng/mL Vitamin D deficiency has been defined by the [place] [employer] and an Endocrine Society practice guideline as a level of serum 25-OH vitamin D less than 20 ng/mL (1,2). The Endocrine Society went on to further define vitamin D insufficiency as a level between 21 and 29 ng/mL (2). 1. IOM ([place] [employer]). 2010. Dietary reference intakes for calcium and D. [place]: The National Academies Press. 2. Ivana MF, Familia NC, Joe BEAL, et al. Evaluation, treatment, and prevention of vitamin D deficiency: an Endocrine Society clinical practice guideline. JCEM. 2010; 96(7):1911-30. Albumin/Creatinine Ratio,Uri ne-[id number] Reviewed date:08/21/2024 07:31:11 AM Interpretation: Performing Lab:[facility], [address] [place] [address], Phone - [phone], Director - Sumit Notes/Report: Creatinine, Urine 71.4 Not Estab. mg/dL Albumin, Urine <3.0 Not Estab. ug/mL Alb/Creat Ratio <4 0-29 mg/g creat Normal: 0 - 29 Moderately increased: 30 - 300 Severely increased: >300 Comp. Metabolic Panel (14)-3 Reviewed date:08/21/2024 07:31:11 AM Interpretation: Performing Lab:[facility], [address] [facility], [place], Phone - [phone], Director - Sumit Notes/Report: Glucose 105 70-99 mg/dL BUN 17 8-27 mg/dL Creatinine 1.01 0.76-1.27 mg/dL eGFR 75 >59 mL/min/1.73 BUN/Creatinine Ratio 17 10-24 Sodium 139 134-144 mmol/L Potassium 4.5 3.5-5.2 mmol/L Chloride 99 96-106 mmol/L Carbon Dioxide, Total 22 20-29 mmol/L Calcium 10.0 8.6-10.2 mg/dL Protein, Total 7.5 6.0-8.5 g/dL Albumin 4.5 3.7-4.7 g/dL Globulin, Total 3.0 1.5-4.5 g/dL Bilirubin, Total 0.3 0.0-1.2 mg/dL Alkaline Phosphatase 91 44-121 IU/L AST (SGOT) 38 0-40 IU/L ALT (SGPT) 37 0-44 IU/L LP+Non-HDL Cholesterol-[id number] Reviewed date:08/21/2024 07:31:11 AM Interpretation: Performing Lab:[facility], [address] [place] [address], Phone - [phone], Director - Sumit Notes/Report: Cholesterol, Total 173 100-199 mg/dL Triglycerides 236 0-149 mg/dL HDL Cholesterol 30 >39 mg/dL VLDL Cholesterol Travon 41 5-40 mg/dL LDL Chol Calc (NIH) 102 0-99 mg/dL Non-HDL Cholesterol 143 0-129 mg/dL HCV Antibody-[id number] Reviewed date:08/21/2024 07:31:12 AM Interpretation: Performing Lab:[facility], [address] [place] [address], Phone - [phone], Director - Sumit Notes/Report: Hep C Virus Ab Non Reactive Non Reactive HCV antibody alone does not differentiate between previously resolved infection and active infection. Equivocal and Reactive HCV antibody results should be followed up with an HCV RNA test to support the diagnosis of active HCV infection. Urinalysis, Complete-[id number] Reviewed date:08/21/2024 07:31:11 AM Interpretation: Performing Lab:[facility], [address] [place] [address], Phone - [phone], Director - Sumit Notes/Report: Specific Justice 1.014 1.005-1.030 pH 6.0 5.0-7.5 Urine-Color Yellow Yellow Appearance Clear Clear WBC Esterase Trace Negative Protein Negative Negative/Trace Glucose Negative Negative Ketones Negative Negative Occult Blood Negative Negative Bilirubin Negative Negative Urobilinogen,Semi-Qn 0.2 0.2-1.0 mg/dL Nitrite, Urine Negative Negative Microscopic Examination See below: Micr oscopic was indicated and was performed. WBC 0-5 0 - 5 /hpf RBC None seen 0 - 2 /hpf Epithelial Cells (non renal) None seen 0 - 10 /hpf Casts None seen None seen /lpf Bacteria None seen None seen/Few Hemoglobin [id number] Reviewed date:08/21/2024 07:31:11 AM Interpretation: Performing Lab:[facility] [place], [address] [place] [address], [place], Phone - [phone], Director - Sumit Notes/Report: Hemoglobin A1c 5.7 4.8-5.6 % . Prediabetes: 5.7 - 6.4 Diabetes: >6.4 Glycemic control for adults with diabetes: <7.0 Reason For Referral Reason Faxed Diagnosis 1 Aural vertigo, unspe cified ear (H81.319) Referral Organization Nato CARBAJAL Referring Provider First Name Nato Referring Provider Last Name Yung Referring Provider Speciality Internal M edicine Referred Provider John Bowles Referred Provider Specialty Ear, nose an d throat surgeon General Notes Aria FAJARDO 07/05 08:56:32 AM >Faxed, Aria FAJARDO 07/28/2024 02:02:02 PM >[facility] the [facility] the [facility] 02:53:35 PM >Patient was given appt in 8 months for ENT. Referral Priority Routine Medications Medication SIG (Take, Route, Frequency, Duration) Notes Start Date End Date Status Vitamin C 1000 MG 1 tablet Orally Once a day; Duration: 30 day(s) Active Turmeric Not-Taking Pamella Not-Taking Apple Cider Vinegar Active Probiotic Not-Taking Honey Active Garlic Not-Taking Tamsulosin HCl 0.4 MG TAKE ONE CAPSULE B Y MOUTH EVERY DAY; Duration: 90 Active Omeprazole 20 MG TAKE ONE CAPSULE BY MOUTH EVERY DAY; Duration: 90 Active Fluticasone Propionate 50 MCG/ACT 1 spray in each nostril Nasally Twice a day Active Ramipril 5 MG 1 capsule Orally Onc e a day; Duration: 30 days 05/30/2025 Active Multivitamin Active Cinnamon 500 MG as directed Orally Not-Taking Zinc 22.5 MG as directed Orally Active Phenylephrine HCl No t-Taking Fiber - as directed Orally A ctive Vitamin D3 1000 UNIT 3 capsules Orally O nce a day Active Immunizations Vaccine Route Administration Date Status Comme nts *Influenza, High Dose Seasonal, Quadrivatent IM Intramuscular 08/13/2023 Administered *Omxevlacm-Qlfupwt-Uutq Dose-65+ IM Intramuscular 08/16/2024 Administered *PREVNAR 20 IM Intramuscular 08/16/2024 Administered *Td IM Intramuscular 08/13/2023 Administered Influenza IM Intramuscular 09/10/2016 Administered Influenza, high dose seasonal Unknown 08/12/2019 Administered Influenza-Afluria (IIV4) IM Intramuscular 08/13/2017 Admin istered Influenza-Afluria (IIV4) Unknown 07/13/2020 Administere d Pneumococcal polysaccharide PCV 13 IM Intramuscular 09/10/2016 Administered Influenza, seasonal, injectable (split), for 3 yrs and up Unknown 08/17/2018 Administered IKHFN-07-Ydsarn Vaccine Unknown 12/03/2020 Administered YBEFG-17-Mxctnv Vaccine Unknown 11/10/2020 Administered *Influenza-Medicare-AS IM Intramuscular 07/31/2022 Adminis tered *Influenza-Medicare-AS IM Intramuscular 07/08/2021 Adminis tered Td (adult) preservative free Unknown 03/23/2013 Administered Td (adult) preservative free Unknown 10/05/2000 Administered Pneumococcal polysaccharide PPV23 Unknown 05/18/2008 Administered Social History Tobacco Use: Social History Observation Description Date Details (start date - stop date) Former Smoker NA - NA AUDIT-C (Standard) Question Answer Notes Did you have a drink containing alcohol in the p ast year? No Points 0 Interpretation Negative Tobacco Control (Standard) Question Answer Notes Tobacco use: Former smoker How long has it been since you last smoked? 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 Problem Idiopathic peripheral autonomic neuropathy (92954297) Other idiopathic peripheral autonomic neuropathy (G90.09) Active confirmed Problem Sensorineural hearing loss of bilateral ears (disorder) (618023910) Sensorineural hearing loss, bilateral (H90.3) Active confirmed Problem Hearing loss (25324163) Unspecified hearing loss, left ear (H91.92) Active confirmed Problem 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) Active confirmed Problem Disorder of acoustic nerve (19911551) Disorders of left acoustic nerve (H93.3X2) Active confirmed Problem Chronic kidney disease due to hypertension (295916093277513 ) Hypertensive chronic kidney disease with stage 1 through stage 4 chronic kidney disease, or unspecified chronic kidney disease (I12.9) Active confirmed Problem Chronic rhinitis (00868717) Chronic rhinitis (J31.0) Active confirmed Problem Gastro-esophagea l reflux disease without esophagitis (311576433) Gastro-esophagea l reflux disease without esophagitis (K21.9) Active confirmed Problem Osteoarthritis of knee (704472237) Unilateral primary osteoarthritis, left knee (M17.12) Active confirmed Problem Osteoarthritis of knee (406309987) Osteoarthritis of knee, unspecified (M17.9) Active confirmed Problem Localized, primary osteoarthritis of the shoulder region (613256004) Primary osteoarthritis, right shoulder (M19.011) Active confirmed Problem Lumbosacral spondylosis without myelopathy (59825649) Other spondylosis with radiculopathy, lumbar region (M47.26) Active confirmed Problem Lumbosacral spondylosis without myelopathy (27655442) Spondylosis without myelopathy or radiculopathy, lumbar region (M47.816) Active confirmed Problem Chronic kidney disease stage 2 (651403319) Chronic kidney disease, stage 2 (mild) (N18.2) Active confirmed Problem Impaired fasting glucose (702990295) Impaired fasting glucose (R73.01) Active confirmed Problem Lower urinary tract symptoms due to benign prostatic hypertrophy (46539681956473) Benign prostatic hyperplasia with lower urinary tract symptoms (N40.1) Active confirmed Problem Prediabetes (050139482) Prediabetes (R73.03) Active confirmed Problem Elevated PSA (383930742) Elevated prostate specific antigen [PSA] (R97.20) Active confirmed Problem 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 Protrusion of prostate into bladder by cystoscopy evaluation Problem Epidemic vertigo (571610669) Vestibular neuronitis, right ear (H81.21) Problem resolved confirmed Problem COVID19 TON-Virus Identified (U07.1) Problem resolved confirmed Vital Signs Heart Rate 71 /min 05/30/2025 Temperature 97.8 degrees Fahrenheit 05/30/2025 Blood pressure diastolic 70 mm Hg 05/15/2025 Oximetry 98 % 05/30/2025 Height 67.5 in 05/30/2025 Blood pressure systolic 160 mm Hg 05/15/2025 Weight 180 lbs 05/30/2025 BMI 27.77 kg/m2 05/30/2025 Encounters Encounter Location Date Provider Diagnosis Nato Barragan MD [address] [id number] 08/16/2024 Nato Barragan Encounter for genera l adult medical examination without abnormal findings Z00.00 ; Hypertensive chronic kidney disease with stage 1 through stage 4 chronic kidney disease, or unspecified chronic kidney disease I12.9 ; Chronic kidney disease, stage 2 (mild) N18.2 ; Gastro-esophageal reflux disease without esophagitis K21.9 ; Other spondylosis with radiculopathy, lumbar region M47.26 ; Idiopathic progressive neuropathy G60.3 ; Impaired fasting glucose R73.01 ; Mixed hyperlipidemia E78.2 ; Elevated prostate specific antigen [PSA] R97.20 ; Nicotine dependence, cigarettes, in remission F17.211 ; Vitamin D deficiency, unspecified E55.9 ; Encounter for screening for malignant neoplasm of colon Z12.11 ; Encounter for screening for malignant neoplasm of prostate Z12.5 ; Encounter for screening for cardiovascular disorders Z13.6 ; Encounter for antibody response examination Z01.84 ; Encounter for immunization Z23 ; Encounter for screening for other viral diseases Z11.59 ; Sensorineural hearing loss, bilateral H90.3 ; Chronic cough R05.3 and Postnasal drip R09.82 Nato Barragan MD [address] [id number] 05/15/2025 Nato Barragan Hypertensive chronic kidney disease with stage 1 through stage 4 chronic kidney disease, or unspecified chronic kidney disease I12.9 ; Chronic kidney disease, stage 2 (mild) N18.2 ; Prediabetes R73.03 ; Gastro-esophageal reflux disease without esophagitis K21.9 ; Other spondylosis with radiculopathy, lumbar region M47.26 ; Idiopathic progressive neuropathy G60.3 ; Mixed hyperlipidemia E78.2 ; Elevated prostate specific antigen [PSA] R97.20 ; Nicotine dependence, cigarettes, in remission F17.211 ; Vitamin D deficiency, unspecified E55.9 and Encounter for other preprocedural examination Z01.818 Nato Barragan MD [address] [id number] 05/30/2025 Nato Barragan Hypertensive chronic kidney disease with stage 1 through stage 4 chronic kidney disease, or unspecified chronic kidney disease I12.9 ; Chronic kidney disease, stage 2 (mild) N18.2 ; Prediabetes R73.03 ; Elevation of levels of liver transaminase levels R74.01 and Vitamin D deficiency, unspecified E55.9 Nato Barragan MD [address] [id number] 07/20/2024 Nato Barragan Aural vertigo, unspecified ear H81.319 Nato Barragan MD [address] [id number] 08/01/2024 Nato Barragan MD [address] [id number] 08/24/2024 Nato Barragan Subacute cough R05.2 Nato Barragan MD [address] [id number] 08/25/2024 Nato Barragan MD [address] [id number] 09/07/2024 Nato Barragan MD [address] [id number] 10/17/2024 Nato Barragan MD [address] [id number] 05/15/2025 Nato Barragan MD [address] [id number] 05/31/2025 Nato Barragan Assessments Encounter Date Diagnosis (ICD Code) Assessment Notes Treatment Notes Treatment Clinical Notes Section Notes 07/20/2024 Aural vertigo, unspecified ear (ICD-10 - H81.319) 08/16/2024 Hypertensive chronic kidney disease with stage 1 through stage 4 chronic kidney disease, or unspecified chronic kidney disease (ICD-10 - I12.9) Stable at present. Continue current medical therapy. 08/16/2024 Encounter for general adult medical examination without abnormal findings (ICD-10 - Z00.00) General healthcare up-to-date. Check routine labs.Healthcare proxy and MOST form already on file 08/24/2024 Subacute cough (ICD-10 - R05.2) 05/15/2025 Hypertensive chronic kidney disease with stage 1 through stage 4 chronic kidney disease, or unspecified chronic kidney disease (ICD-10 - I12.9) His blood pressure is elevated. This may be an isolated flare and recommend verifying blood pressure using a validated blood pressure cuff 05/15/2025 Chronic kidney disease, stage 2 (mild) (ICD-10 - N18.2) Stable estimated GFR in the 70s. Continue control of comorbidity of hypertension 05/30/2025 Hypertensive chronic kidney disease with stage 1 through stage 4 chronic kidney disease, or unspecified chronic kidney disease (ICD-10 - I12.9) Home blood pressure readings in the 130s prior to surgery. Patient expressed concern about medication side effects and risks of uncontrolled hypertension (stroke, cognitive impairment). Family history of hypertension discussed. Weight gain noted due to decreased activity. - Start Ramipril 5 mg for blood pressure control. - Monitor for side effects, especially dry cough. - Continue blood pressure medication on the day of surgery. - Check blood pressure in about a month. 05/30/2025 Chronic kidney disease, stage 2 (mild) (ICD-10 - N18.2) Kidney function described as stage 2 chronic kidney disease. No protein in urine. Kidney function value discussed and reassured as stable. 05/30/2025 Prediabetes (ICD-10 - R73.03) Stable on prior labs as reviewed. Encourage exercise to maintain control 05/15/2025 Prediabetes (ICD-10 - R73.03) Stable on prior labs as reviewed. Encourage exercise to maintain control 08/16/2024 Chronic kidney disease, stage 2 (mild) (ICD-10 - N18.2) Stable estimated GFR in the 70s. Continue current medical therapy and control of comorbidities of hypertension 08/16/2024 Gastro-esophageal reflux disease without esophagitis (ICD-10 - K21.9) Symptomatically controlled at present 05/15/2025 Gastro-esophageal reflux disease without esophagitis (ICD-10 - K21.9) Symptomatically stable with current medical therapy 05/30/2025 Elevation of levels of liver transaminase levels (ICD-10 - R74.01) He had a spurious elevation of his ALT. This may have been some ingested material that may have caused this. This may have been a supplement or something else. Can we check status and if this is normalized then it may have been one of his supplements that may have caused an transient transaminitis 05/30/2025 Vitamin D deficiency, unspecified (ICD-10 - E55.9) Vitamin D level reviewed. Patient confirmed ongoing supplementation. - Continue Vitamin D supplementation. 05/15/2025 Other spondylosis with radiculopathy, lumbar region (ICD-10 - M47.26) Still has ongoing issues with some stiffness in his knees.However this does not sound as if he has any persisting radicular symptoms. 08/16/2024 Other spondylosis with radiculopathy, lumbar region (ICD-10 - M47.26) He still has ongoing issues with his knees and other joints. 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 He has intermittent burning and paresthesias. 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 Continue supportive care. 08/16/2024 Impaired fasting glucose (ICD-10 - R73.01) Stable on prior labs. Recheck status 05/15/2025 Mixed hyperlipidemia (ICD-10 - E78.2) Stable on prior labs as reviewed with LDL that had been less than 100 but then increased recently. This can be reevaluated after his surgery at next pending office visit 08/16/2024 Mixed hyperlipidemia (ICD-10 - E78.2) Fair control with LDL less than 100. 05/15/2025 Elevated prostate specific antigen [PSA] (ICD-10 - R97.20) Stable at present. Given lack of progression he is at low risk for malignancy 05/15/2025 Nicotine dependence, cigarettes, in remission (ICD-10 - F17.211) Remains in remission 08/16/2024 Elevated prostate specific antigen [PSA] (ICD-10 - R97.20) His PSA was mildly elevated. Can recheck status to verify that there is stability 05/15/2025 Vitamin D deficiency, unspecified (ICD-10 - E55.9) Stable on prior labs as reviewed. 08/16/2024 Nicotine dependence, cigarettes, in remission (ICD-10 - F17.211) Remains in remission 08/16/2024 Vitamin D deficiency, unspecified (ICD-10 - E55.9) Check level to verify that there is no deficiency and would consider vitamin D supplementation for goal level of 50+ 05/15/2025 Encounter for other preprocedural examination (ICD-10 - Z01.818) At the present time his blood pressure is elevated. This is not his usual. It is unclear if this is a isolated flare versus progressive hypertension. Recommend he verify his blood pressure at home with a validated cuff using correct technique as per handout given. Reevaluate blood pressure control in 2 weeks. If his blood pressure is stable at home then he would be low risk for the proposed surgery. 08/16/2024 Encounter for screening for malignant neoplasm of colon (ICD-10 - Z12.11) Up-to-date on colon cancer screening 08/16/2024 Encounter for screening for malignant neoplasm of prostate (ICD-10 - Z12.5) Can check PSA has prostate cancer screening realizing the limitation of this test as a screening test 08/16/2024 Encounter for screening for cardiovascular disorders (ICD-10 - Z13.6) Blood pressure is stable. Can check for comorbidity of hyperlipidemia and hyperglycemia to further assess risk. 08/16/2024 Encounter for antibody response examination (ICD-10 - Z01.84) Titers have been checked in the past and there is immunity to rubeola 08/16/2024 Encounter for immunization (ICD-10 - Z23) Vaccines up to date 08/16/2024 Encounter for screening for other viral diseases (ICD-10 - Z11.59) Can screen for hepatitis C as per general recommendation 08/16/2024 Sensorineural hearing loss, bilateral (ICD-10 - H90.3) Recommend hearing test. 08/16/2024 Chronic cough (ICD-10 - R05.3) He still has an intermittent cough. This is probably upper respiratory in etiology. He has been using Sudafed with some help. Recommend changing medical therapy to help control postnasal drip which is his primary cause. 08/16/2024 Postnasal drip (ICD-10 - R09.82) He has been using Flonase but recommend he double the Flonase and use it correctly. He has ENT evaluation pending to rule out structural disease. 08/16/2024 Other This note was created with voice dictation recognition software and may contain errors of grammar and syntax. Also labs were reviewed with patient. 05/15/2025 Other This note was created with voice dictation recognition software and may contain errors of grammar and syntax. Also labs were reviewed with patient. 05/30/2025 Other This note was created with voice dictation recognition software and may contain errors of grammar and syntax. Also labs were reviewed with patient. Plan Of Treatment Pending Test Test Name Order Date MMR (Measles, Mumps, Rubella) Titer 06/0 03/2019 CBC 07/08/2021 CBC 08/11/2023 CBC 12/05/2022 COMPREHENSIVE METABOLIC PANEL 12/05/2022 COMPREHENSIVE METABOLIC PANEL 01/11/2021 COMPREHENSIVE METABOLIC PANEL 08/11/2023 COMPREHENSIVE METABOLIC PANEL 07/08/2021 COMPREHENSIVE METABOLIC PANEL 01/06/2022 GLYCOHEMOGLOBIN PROFILE 07/08/2021 GLYCOHEMOGLOBIN PROFILE 01/06/2022 GLYCOHEMOGLOBIN PROFILE 08/11/2023 GLYCOHEMOGLOBIN PROFILE 12/05/2022 HEPATITIS C VIRUS SCREEN 08/11/2023 HEPATITIS C VIRUS SCREEN 07/31/2022 HEPATITIS C VIRUS SCREEN 02/27/2023 LIPID PROFILE 01/06/2022 LIPID PROFILE 07/08/2021 LIPID PROFILE 08/11/2023 LIPID PROFILE 01/11/2021 LYME DISEASE ANTIBODIES 02/27/2023 PROSTATIC SPECIFIC ANTIGEN 09/12/2019 PROSTATIC SPECIFIC ANTIGEN SCR PROSTATIC SPECIFIC ANTIGEN SCR RHEUMATOID FACTOR 02/27/2023 URINALYSIS 07/08/2021 URINALYSIS 01/06/2022 URINALYSIS 08/11/2023 URINALYSIS 12/05/2022 MICROALB/CREAT RATIO, RANDOM 12/05/2022 MICROALB/CREAT RATIO, RANDOM 08/11/2023 VITAMIN D, 25-HYDROXY 08/11/2023 VITAMIN D, 25-HYDROXY 12/05/2022 VITAMIN D, 25-HYDROXY 09/12/2019 VITAMIN D, 25-HYDROXY 03/10/2019 VITAMIN D, 25-HYDROXY 07/08/2021 VITAMIN D, 25-HYDROXY 12/24/2020 VITAMIN D, 25-HYDROXY 07/31/2022 VITAMIN D, 25-HYDROXY 01/06/2022 VITAMIN D, 25-HYDROXY 11/09/2018 COLOGUARD 11/09/2018 COLOGUARD 07/31/2022 Immunofixation, Serum-[id number] 01/13/2024 Complement C4, Serum-[id number] 01/13/2024 Complement C3, Serum-[id number] 01/13/2024 THAO by IFA Rfx Titer/Pattern-[id number] 01/03 Comp. Metabolic Panel [id number] 2024 MPO+ME-3 Reflex ANCA on High-[id number] 01/03 PSA Total+% Free-[id number] 01/13/2024 Next Appt Details Provider Name:Figueroashy Yung , 06/27/2025 10:00:00 AM, [address] [place] [address], [phone], Provider Name:Nato Barragan , 09/06/2025 11:00:00 AM, [address] [place] [address], [phone], Insurance Providers Payer Name Payer Address Payer Phone Subscriber Number Group Number Insured Name Patient Relationship to Insured Coverage Start Date Coverage End Date [facility] [employer] [employer] PLAN 1 [place], [place] [id number] [phone] [id number] Yogesh Last Self - patient is the insured Medical (General) History Medical History History ICD Code Chronic kidney disease, stage 2 (mild) N 18.2 Impaired fasting glucose R73.01 Gastro-esophageal reflux disease without esophagitis K21.9 Spinal stenosis, lumbar region M48.06 Unspecified abdominal hernia without obs truction or gangrene K46.9 Vitamin D deficiency, unspecified E55.9 Hypertensive chronic kidney disease with stage 1 through stage 4 chronic kidney disease, or unspecified chronic kidney disease I12.9 Spondylosis without myelopathy or radicu lopathy, 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, 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
--- OUTSIDE RECORDS SUMMARY | 2025-06-15 16:47 | XMS_ITS | Patient Health Record ---
[facility] Address [address] [place] [address] Care Team Providers Care Telephone Appointment Clerk Name Role Phone Nato Barragan MD Primary Care Provider Unavail able Steven Willett Unavailable [phone] Reason For Referral No Information Medications Medication [...] Notes Problem Hallux valgus of right foot (7640422987) Hallux valgus of right foot (M20.11) Active confirmed Problem Hallux valgus of left foot (5645570378) Hallux valgus of left foot (M20.12) Active confirmed Vital Signs Height 5 ft 9 in in 08/09/2024 Weight 168 lbs 08/09/2024 BMI 24.81 kg/m2 08/09/2024 Encounters Encounter Location Date Provider Diagnosis [facility] [address] 07/19/2024 Steven Willett Hallux valgus of left foot M20.12 ; Hallux valgus of right foot M20.11 ; Other bursitis, not elsewhere classified, left ankle and foot M71.572 ; Other bursitis, not elsewhere classified, right ankle and foot M71.571 ; Pain in left foot M79.672 and Right foot pain M79.[address] [facility] [address] 08/09/2024 Steven Willett Hallux valgus of left foot M20.12 ; Hallux valgus of right foot M20.11 ; Pain in left foot M79.672 and Right foot pain M79.671 [facility] [address] [place] [address] 07/08/2024 Steven Willett [address] [address] 12/08/2024 Steven Willett [facility] [address] [place] [phone] 12/12/2024 Steven Willett Assessments Encounter Date Diagnosis [...] Date [employer] [place] Medicare Advantage [facility] [address] [facility] [place] [address] [phone] [id number] Fabian Last Self - patient is the [...]
--- OUTSIDE RECORDS SUMMARY | 2025-06-15 16:47 | XMS_ITS | Patient Health Record ---
Author Organization [facility] Billing Info Address [address] [place] [address] Support Name Relationship Address Phone Fabian Schrader Jr Guarantor Unknown [phone] Reason For Referral No Information Problems Problem Type SNOMED Code ICD Code Onset Dates Problem Status W/U Status Risk Notes Problem [id number] Impacted cerumen (380.4) Active confirmed Migrated-Pr oblemList-3 [facility]- 01/13/2014 Plan Of Treatment No Information Insurance Providers Payer Name Payer Address Payer Phone Subscriber Number Group Number Insured Name Patient Relationship to Insured Coverage Start Date Coverage End Date [place]ARE [place] PART B [address] [facility] [place] [id number] Fabian Schrader Jr Self - patient is the insured 3 3 [employer] [facility] [address] [address] [place], [place] [id number] Fabian Schrader Jr Self - patient is the insured 3 3
--- OUTSIDE RECORDS SUMMARY | 2025-06-15 16:47 | XMS_ITS | Clinical Summary ---
Author Organization [facility] Address [address] [place] [address] Care Team Providers Care International Student Advisor Name Role Phone Nato Barragan MD Primary Care Provider [phone] Allergies No known active allergies Medications Medication [...] age to complete this topic Care Teams International Student Advisor Relationship Specialty Start Date End Date Nato Barragan MD [address] [address] PCP - General Internal Medicine 03/10/19
== END 2025-06-15 13:04 | disposition home or self-care (01) ==
LOC: HO.HOS 12:35
PROVIDERS: PCP Internal Medicine; Visit Provider Orthopaedic Surgery
DX: M25.511 Pain in right shoulder (principal)
CPT/HCPCS: 99024

== ENCOUNTER 2025-08-15 11:35 | Outpatient (AMB) | payer OTHER, SELFPAY ==
--- OUTSIDE RECORDS SUMMARY | 2024-11-03 08:45 | XMS_ITS ---
Author Organization Nato Barragan MD Address [address] [place] [phone] Care Team Providers Care Insole And Outsole Preparer Name Role Phone Nato Barragan Primary Care Provider REASON FOR VISIT 2m f/u moca Encounters Encounter Location Date Provider Diagnosis Nato Barragan MD [address] [facility] [address] [place] [phone] 11/03/2024 Nato Barragan Plan Of Treatment Next Appt Details Provider Name:Nato Barragan , 09/06/2025 11:00:00 AM, [address] [place] [address], [place] [address], [place], [place], [phone], Progress Notes * Fabian SCOTT JrDOB: 1945 (80 yo M)Acc No.[id number]:11/03/2024 Progress Notes Patient: Fabian SCHMITT Jr Provider: Christiane Barragan MD :1945 A ge:79 Y S ex:Male Date:11/03/2024 Address: [id number] Subjective: * Chief Complaints: * 1 . 2m f/u moca. * Medical History: Objective: * Vitals: Past Vitals:* 08/16/2024 Temp:96.1F, HR:67/min, BP:Si tting Right Arm: 122/64mm Hg, Wt:175.8lbs, BMI:27.12Index, Ht:67.5in, Oxygen sat %:96% * 04/28/2024 Temp:97.8F, HR:71/min, BP:Si tting Right Arm: 126/70mm Hg, Wt:173.00lbs, BMI:26.69Index, Ht:67.5in, Oxygen sat %:98% * 04/04/2024 Temp:96.9F, HR:82/min, Wt:17 2.2lbs, BMI:26.57Index, Ht:67.5in, Oxygen sat %:98% Assessment: Plan: * Treatment: * Images: Billing Information: * Visit Code: * Procedure Codes: * Electronic signature of Kaelyn Barragan MD on 08/15/2025 at 01:40 PM EST Sign off status: Pending * Provider: Christiane Barragan MD Date: 0 11/03/2024 Generated for Wenceslao garcia/Manolo/Marilin on: 10/15/2024 01:40 PM EST
--- NOTE | 2025-08-15 11:39 | MHC.OFFVIS ---
Intake Visit Reasons: PO-Rt Shld 06/02/25 Intake Note: Fabian is an 80 year old man who presents with complaints of mild to moderate discomfort in his right shoulder after undergoing right shoulder arthroscopic surgery on 06/02/2025. He continues with his home stretching program. He denies any fevers or chills. Allergies erythrosine sodium (Erythrosine) Allergy (Unknown, Verified 08/15/25 11:40) UNKNOWN Medication List - Last Reviewed 08/15/25 by DAYLIN Stevens amoxicillin 2,000 mg (4 x 500 mg) PO ONCE 21 days diclofenac sodium 75 mg PO BID fluticasone propionate 50 mcg/actuation 1 spray intranasal BID multivitamin 1 tab PO DAILY omeprazole 20 mg PO DAILY oxycodone 5 mg PO Q6H PRN psyllium husk (Metamucil) 1 tbsp PO DAILY ramipril 5 mg PO DAILY rosuvastatin 5 mg PO DAILY tamsulosin 0.4 mg PO QAM PFSH Medical History PONV (postoperative nausea and vomiting) Pre-diabetes BPH (benign prostatic hyperplasia) Chronic renal insufficiency Lumbar spondylolysis Idiopathic progressive neuropathy Hyperlipidemia Arthritis Surgical History Hx of cataract extraction History of open reduction and internal fixation (ORIF) procedure Hx of elbow surgery History of surgery on wrist Hx of hernia repair Hx of nasal septoplasty History of lumbar fusion Hx of shoulder surgery Hx of bilateral hip replacements History of left knee replacement (04/14/22) Social History Household Members: Spouse Housing: House Are you a primary patient care secretary to a significant other at home: No Do you presently have visiting nurse or other home services: No Alcohol intake: never Patient Tobacco Use Status: Former Tobacco user Tobacco use type: Cigarette Years Smoked: 15 service: Yes ([employer]) Current occupational status: retired Physical Exam Extrem Other: Right shoulder examination shows that the surgical incisions are well healed, no erythema, slightly decreased range of motion when compared to his left shoulder, mild discomfort with range of motion, no instability Assessment & Plan Assessment & Plan (1) Right shoulder pain: Code(s): M25.511 - Pain in right shoulder Category: Medical Plan Fabian continues to do well after undergoing right shoulder arthroscopic surgery on 06/02/2025. He will continue with his home stretching program. I did give him a final prescription for oxycodone as per his request. The do's and don'ts of lifting were discussed at length with the patient. He will contact me prior to his follow-up appointment in 3 months should any questions or concerns arise. Feel free to call me at any time should questions regarding his orthopedic management arise. Medications: New oxycodone Partial Fill upon patient request. 5 mg PO DAILY PRN 20 tabs 0RF pain Coding Level of Care Code Global (40647) Diagnoses Right shoulder pain M25.511
--- OUTSIDE RECORDS SUMMARY | 2025-08-15 13:40 | XMS_ITS | Clinical Summary ---
Author Organization [facility] Address [address] [place] [address] Phone Care Team Providers Care Lunchroom Food Service Supervisor Name Role Phone Nato Barragan MD Primary Care Provider Surgical History Surgery Date Site/Laterality Comments ORIF [...] Years Used Date Smoking Tobacco: Former Cigarettes 0 Q uit: 10/05/1967 Smokeless Tobacco: Never Alcohol [...] Documents on File Type Date Recorded Patient Policy Change Clerks Supervisor Expl anation Health Care Decision (hx) 04/14/2022 AD BA DIRECTIVE Health Care Decision (hx) 04/14/2022 AD BA DIRECTIVE Health Care Decision (hx) 04/14/2022 DENNY BA DIRECTIVE Care Teams Lunchroom Food Service Supervisor Relationship Specialty Start Date End Date Nato Barragan MD [address] [place] [address] PCP - General Internal Medicine 03/10/19
--- OUTSIDE RECORDS SUMMARY | 2025-08-15 13:40 | XMS_ITS | Data Portability ---
Author Organization [facility] PAIN OFFICE Address [address] [facility],[address] [place] [address] Care Team Providers Care Check And Transfer Beader Name Role Phone MARYA YOUNG Primary Care [...] [email or web address] Not available 03/14/2015 11:28:13 04/25/2016 04/25/2016 Fabian Schrader is [id number] old man with new onset right sided [...] booked for the same. He needs a driver/guide on the day of the procedure. I will also order X-rays of the pelvis. Addendum: X-ray of the Pelvis shows mild degenerative changes of the sacroiliac joint and stable intact bilateral hip arthroplasties. [email or web address] Not available 04/28/2016 14:03:16 05/13/2016 05/13/2016 Fabian Schrader is [id number] old man with new onset right sided [...] lidocaine 5 % topical patch 2014 015 [employer] [id number], [address] [place] [address], [id number], 6 10:32:58 tizanidine 2 mg tablet [address] [id number], [address] [place] [address], [id number], 5 10:07:37 Patient TargetsNo targets recorded. Patient Instructions Encounter Date Encounter Id Patient Instructions Last Modified By Organization Details Last Modified Time 12/05/2014 [id number] He was advised against bed rest lasting longer than four days and to continue activities as tolerated. [email or web address] Not available 12/08/2014 15:50:10 02/15/2015 [id number] He was advised against bed rest lasting longer than four days and to continue activities as tolerated. [email or web address] Not available 02/16/2015 11:38:27 03/14/2015 [id number] He was advised against bed rest lasting longer than four days and to continue activities as tolerated. [email or web address] Not available 03/14/2015 11:25:13 04/25/2016 [id number] He was advised against bed rest lasting longer than four days and to continue activities as tolerated. tmanikantan Not available 04/28/2016 14:03:38 05/13/2016 [id number] He was advised against bed rest lasting longer than four days and to continue activities as tolerated. [email or web address] Not available 05/13/2016 14:25:31 Reason for Referral None Reported. Results Created Date Observation Date Name Description Value Unit Range Abnormal Flag Note LastModifiedBy Organization Detail LastModifiedTime 04/25/20 16 04/25/2016 XR, pelvi s, 1 or 2 view No observ ation record ed. [facility] [address] [place] [address], [place], [address], 05/13/2016 14:25:31 Result Notes None recorded. Problems Name Problem SNOMED Code Status Onset Date Resolution Date Notes Provider Name and Address Organization Details Recorded Time Lumbosacral spondylosis without myelopathy 33210339 Active Winsome salas MD [address] [facility] , [address], [place], [address], [place] [facility] 6 14:24:57 Lumbar post-laminecto my syndrome 420815084 Gentry salas MD [email or web address] [facility] , [address], [place], [address], [place] [facility] 6 14:28:09 Meralgia paresthetica [id number] Gentry salas MD [email or web address] [facility] , [address], [place], [address], [place] [facility] 6 14:24:57 Lumbosacral radiculitis [id number] Gentry salas MD [address] [facility] , [address], [place], [address], [place] [facility] 6 14:24:57 Inflammation of sacroiliac joint 04118621 Active Winsome salas MD [address] [facility] , [address], [place], [address], [place] [facility] 6 14:28:09 Problem Notes None recorded. Procedures Surgical History Date Name Laterality Status Provider Name and Address Organization Details Recorded Time 6 Sacroiliac Joint Steroid Injections, using Fluoroscopy completed Winsome Baldwin MD [address] [facility] , [address], [place], [address], [place] [facility] 05/13/2016 14:28:09 4 Lateral Femoral Cutaneous Nerve Block under ultrasound guidance completed Winsome Baldwin MD [address] [facility] , [address], [place], [address], [place] [facility] 10/23/2014 11:07:43 4 Lateral Femoral Cutaneous Nerve Block under ultrasound guidance completed Winsome Baldwin MD [address] [facility] , [address], [place], [address], [place] [facility] 09/20/2014 [...] 87 /min 170/88 mm[Hg] Uzma Glover MA [facility] 5 10:07:37 Date Recorded Heart rate Oxygen saturation Oxygen saturation in Arterial blood by Pulse oximetry Systolic And Diastolic Provider Name and Address Organization Details Last Updated DateTime 04/25/2016 73 /min 97 % 97 % 131/84 mm[Hg] Uzma Glover [facility] 6 10:32:58 Date Recorded Heart rate Oxygen saturation Oxygen saturation in Arterial blood by Pulse oximetry Systolic And Diastolic Provider Name and Address Organization Details Last Updated DateTime 05/13/2016 67 /min 98 % 98 % 139/82 mm[Hg] Uzma Glover [facility] 6 11:05:55 Social History Question Answer Notes LastModified by Organizat ion Details LastModified Time Tobacco Smoking Status Former Smoker Quit x 40 years Not Available [facility] 07/20/2020 03:16:11 Which Illicit Or Recreational Drugs Have You Used? No [id number] Information not available 07/20/2020 Education [facility] Information no t available 09/14/2014 Live Alone Or With Others? With Others And Son Information not available 09/14/2014 Marital Status Informatio n not available 09/14/2014 How Many Years Have You Smoked Tobacco? 17 [id number] Information not available 07/20/2020 Sex: Unknown Functional Status Question Answer Note LastModified by Organization D etails LastModified Time What is your level of alcohol consumption? None [id number] Information not available 07/20/2020 Are you currently employed? No [id number] Information not available 07/20/2020 Mental Status None recorded. Family History Relationship Description Onset Age of this Age Resolved Age Notes LastModified by Organization Details LastModified Time Mother Heart disease [email or web address] Not available 06/2016 14:25:13 Medical History Condition Response Arthritis Y Past Encounters Encounter ID Performer Location Encounter Start Date Encounter Closed Date Diagnosis/Indication Diagnosis SNOMED-CT Code Diagnosis ICD10 Code Diagnosis IMO Codes Diagnosis Note [id number] Winsome Baldwin MD [facility] [address] [place] [address] 09/14/2014 09:45:09 09/18/2014 09:45:13 Lumbar post-laminectomy syndrome 314515192 Lumbosacra l radiculitis 96907469 Lumbosacra l spondylosis without myelopathy 82585034 Meralgia paresthetica 16962486 [id number] Winsome Baldwin MD [facility] [address] [place] [address] 09/19/2014 14:26:51 09/20/2014 11:17:32 Lumbosacral spondylosis without myelopathy 83653929 Meralgia paresthetica 97205572 Lumbosacra l radiculitis 26785920 Lumbar post-laminectomy syndrome 437202588 [id number] Winsome Baldwin MD PAIN OFFICE [address] [place] [address] 10/02/2014 09:24:42 10/23/2014 11:09:17 Lumbosacral spondylosis without myelopathy 10965872 Meralgia paresthetica 94965897 Lumbosacra l radiculitis 13785749 Lumbar post-laminectomy syndrome 879102565 [id number] Winsome Baldwin MD PAIN OFFICE [address] [place] [address] 10/26/2014 10:36:47 10/26/2014 14:38:33 Lumbosacral spondylosis without myelopathy 80602844 Meralgia paresthetica 19822645 Lumbosacra l radiculitis 49167111 Lumbar post-laminectomy syndrome 225982772 [id number] Winsome Baldwin MD [facility] [address] [place] [address] 12/05/2014 15:24:27 12/08/2014 15:53:31 Lumbosacral spondylosis without myelopathy 41585770 Meralgia paresthetica 45301077 Lumbosacra l radiculitis 37137159 Lumbar post-laminectomy syndrome 451824770 [id number] Winsome Baldwin MD [facility] [address] [place] [address] 02/15/2015 11:31:59 02/16/2015 11:43:40 Lumbosacral spondylosis without myelopathy 80300413 Meralgia paresthetica 43375690 Lumbosacra l radiculitis 50672102 Lumbar post-laminectomy syndrome 461652125 [id number] Winsome Baldwin MD PAIN OFFICE [address] [place] [address] 03/14/2015 09:59:05 03/14/2015 11:28:40 Lumbosacral spondylosis without myelopathy 82089137 Meralgia paresthetica 40117128 Lumbosacra l radiculitis 75427607 Lumbar post-laminectomy syndrome 423186019 [id number] Winsome Baldwin MD PAIN OFFICE [address] [facility] [place] [address] 04/25/2016 10:06:02 04/28/2016 14:03:59 Inflammation of sacroiliac joint 98303417 M46.1 Lumbar post-laminectomy syndrome 985339145 M96.1 [id number] Winsome Baldwin MD PAIN OFFICE [address] [facility] [place] [address] 05/13/2016 08:40:56 05/13/2016 14:30:04 Inflammation of sacroiliac joint 65004334 M46.1 Lumbar post-laminectomy syndrome 623762278 M96.1 Health Concerns Section Related Observation LastModified by Organization Detai ls LastModified Time None Recorded Concern Status LastModified by Organization Details LastModified Time None Recorded Advance Directives Directive None Recorded Payers Insurance Date Sequence Insurance Name Policy Number Policy Armstrong Covered Member ID Armstrong Member ID Guarantor Name 05/10/2016 1 [place] [employer] Fabian Schrader Jr [id number] Fabian Schrader 05/10/2016 2 [place] [id number] Fabian Schrader Jr [id number] Fabian Macrina Notes Date Note Type [...] or bowel incontinence. Winsome Baldwin MD [address] [facility] , [address], [place], [address], [facility] 12/11/2014 08:53:15 02/15/2015 [...] or bowel incontinence. Winsome Baldwin MD [address] [facility] , [address], [place], [address], [facility] 02/20/2015 14:57:12 03/14/2015 [...] or bowel incontinence. Winsome Baldwin MD [address] [facility] , [address], [place], [address], [facility] Pain Management 03/29/2015 08:42:35 04/25/2016 [...] from L4-S1 levels and bilateral hip replacements. Winsmoe Baldwin MD [address] [facility] , [address], [place], [address], [facility] - Pain Management 05/01/2016 10:21:25 05/13/2016 text/html He is here for a right sacroiliac joint injection under fluoroscopic guidance Winsome Baldwin MD [address] [facility] , [address], [place], [address], [facility] - Pain Management 05/26/2016 15:36:15
--- OUTSIDE RECORDS SUMMARY | 2025-08-15 13:40 | XMS_ITS | Patient Health Record ---
Author Organization Nato Barragan MD Address [address] [place] [id number] Care Team Providers Care Waste Collector Name Role Phone Nato Barragan Primary Care Provider [phone] Allergies Allergen (clinical drug ingredient) Drug/Non Drug Allergy documented on EMR Reaction Allergy Type Onset Date Status Cat dander Cat Dander Unknown Allergy Active Results Component Value Reference Range Notes Hemoglobin [id number] Reviewed date:08/21/2024 07:31:11 AM Interpretation: Performing Lab:[facility], Phone - [phone], Director - Sumit Notes/Report: Hemoglobin A1c 5.7 4.8-5.6 % . Prediabetes: 5.7 - 6.4 Diabetes: >6.4 Glycemic control for adults with diabetes: <7.0 Urinalysis, Complete-[id number] Reviewed date:08/21/2024 07:31:11 AM Interpretation: Performing Lab:[facility], [address] [facility], Phone - [phone], Director - Sumit Notes/Report: Specific Quincy 1.014 1.005-1.030 pH 6.0 5.0-7.5 Urine-Color Yellow [...] seen /lpf Bacteria None seen None seen/Few CBC With Differential/Platel et-[id number] Reviewed date:08/21/2024 07:31:11 AM Interpretation: Performing Lab:[facility] [place], [address] [facility], Phone - [phone], Director - Sumit Notes/Report: WBC 7.9 3.4-10.8 x10E3/uL RBC 4.30 [...] Immature Grans (Abs) 0.0 0.0-0.1 x10E3/uL Prostate-Specific Ag-[id number] Reviewed date:08/21/2024 07:31:11 AM Interpretation: Performing Lab:[facility] [place], [address] [facility], [place], Phone - [phone], Director - Sumit Notes/Report: Prostate Specific Ag 4.4 0.0-4.0 ng/mL Gabby ECLIA methodology. . According to the [place] [employer], Serum PSA should decrease and [...] or absence of malignant disease. Vitamin D, 42-Gmtwnjp-[id number] Reviewed date:08/21/2024 07:31:11 AM Interpretation: Performing Lab:[facility], [address] [place] [address], Phone - [phone], Director - Sumit Notes/Report: Vitamin D, 25-Hydroxy 55.0 30.0-100.0 ng/mL Vitamin D deficiency has been defined by the Lily of Medicine and an Endocrine Society practice guideline as a level of serum 25-OH vitamin D less than 20 ng/mL (1,2). The Endocrine Society went on to further define vitamin D insufficiency as a level between 21 and 29 ng/mL (2). 1. IOM ([place] [employer]). 2010. Dietary reference intakes for calcium and D. [place]: The National Academies Press. 2. Ivana MF, Familia NC, Joe BEAL, et al. Evaluation, treatment, and prevention of vitamin D deficiency: an Endocrine Society clinical practice guideline. JCEM. 2010; 96(7):1911-30. Albumin/Creatinine Ratio,Uri ne-405458 Reviewed date:08/21/2024 07:31:11 AM Interpretation: Performing Lab:[facility], [address] [place] [address], Phone - [phone], Director - Sumit Notes/Report: Creatinine, Urine 71.4 Not Estab. mg/dL Albumin, Urine <3.0 Not Estab. ug/mL Alb/Creat Ratio <4 0-29 mg/g creat Normal: 0 - 29 Moderately increased: 30 - 300 Severely increased: >300 Comp. Metabolic Panel (14)-3 Reviewed date:08/21/2024 07:31:11 AM Interpretation: Performing Lab:[facility] Gomez [address] [place] [address], [place], Phone - [phone], - Sumit Notes/Report: Glucose 105 70-99 mg/dL [...] IU/L ALT (SGPT) 37 0-44 IU/L LP+Non-HDL Cholesterol-98830 5 Reviewed date:08/21/2024 07:31:11 AM Interpretation: Performing Lab:[facility] [address] [place] [address], Phone - [phone], Director - MDJodry Notes/Report: Cholesterol, Total 173 100-199 mg/dL Triglycerides 236 0-149 mg/dL HDL Cholesterol 30 >39 mg/dL VLDL Cholesterol Travon 41 5-40 mg/dL LDL Chol Calc (NIH) 102 0-99 mg/dL Non-HDL Cholesterol 143 0-129 mg/dL HCV Antibody-[id number] Reviewed date:08/21/2024 07:31:12 AM Interpretation: Performing Lab:[facility] Gomez [address] [place] [address], Phone - [phone], Director - MDJodry Notes/Report: Hep C Virus Ab Non Reactive Non Reactive HCV antibody alone does not differentiate between previously resolved infection and active infection. Equivocal and Reactive HCV antibody results should be followed up with an HCV RNA test to support the diagnosis of active HCV infection. Hemoglobin [id number] Reviewed date:05/29/2025 05:26:51 PM Interpretation: Performing Lab:[facility] [address] [place] [address], Phone - [phone], Director - MDJodry Notes/Report: Hemoglobin A1c 5.4 4.8-5.6 % . Prediabetes: 5.7 - 6.4 Diabetes: >6.4 Glycemic control for adults with diabetes: <7.0 Urinalysis, Complete-[id number] Reviewed date:05/29/2025 05:26:52 PM Interpretation: Performing [facility], Phone - [phone], Director - [facility] Notes/Report: Specific Quincy 1.018 1.005-1.030 pH 5.5 5.0-7.5 Urine-Color Yellow [...] Bacteria None seen None seen/Few Albumin/Creatinine Ratio,Uri ne-056883 Reviewed date:05/29/2025 05:26:52 PM Interpretation: Performing Lab:[facility] [place], [address] [place] [address], Phone - [phone], Director - Sumit Notes/Report: Creatinine, Urine 92.6 Not Estab. mg/dL Albumin, Urine 6.5 Not Estab. ug/mL Alb/Creat Ratio 7 0-29 mg/g creat Normal: 0 - 29 Moderately increased: 30 - 300 Severely increased: >300 Comp. Metabolic Panel (14)-3 43549 Reviewed date:05/29/2025 05:26:52 PM Interpretation: Performing Lab:[facility] [place], [address] [place] [address], Phone - [phone], Director - Sumit Notes/Report: Glucose 98 70-99 mg/dL BUN 23 [...] 0 RR_NumBeats 0 RR_NumNormalBeats 0 RR_SystolicBP 0 Comp. Metabolic Panel (14)-3 86655 (Not yet reviewed by provider) Interpretation: Performing Lab:[facility], [address] [facility], [place], Phone - [phone], Director - Sumit Notes/Report: Glucose 121 70-99 [...] PM Interpretation: Performing Lab: Notes/Report: See Note [facility], a member of [employer] HISTORY: The patient is an 79-year-old male [...] clear. IMPRESSION: No acute pulmonary disease. Code 44345 CT Teleradiology -------- FINAL REPORT -------- Dictated By: Patricio Hinson Dictated Date: 08/25/2024 10:26 ET Assigned Physician: Patricio Hinson Reviewed and Electronically Signed By: Patricio Hinson Signed Date: 08/25/2024 10:27 ET Workstation ID: [id number] Transcribed By: Self Edit Transcribed Date: 08/25/2024 10:26 ET Reason For Referral No Information Medications Medication SIG (Take, Route, Frequency, Duration) Notes Start Date End Date Status amLODIPine Besylate 5 MG 1 tablet Orally Once a day; Duration: 30 days 06/27/2025 Active Multivitamin Active Ramipril 5 MG 1 capsule Orally Onc e a day; Duration: 90 days 05/30/2025 Active Turmeric Not-Taking Garlic Not-Taking Vitamin C 1000 MG 1 tablet Orally Once a day; Duration: 30 day(s) Active Probiotic Not-Taking Honey Active Phenylephrine HCl No t-Taking Vitamin D3 1000 UNIT 3 capsules Orally O nce a day Active Rosuvastatin Calcium 10 MG 1 tablet Oral ly Once a day; Duration: 30 days 06/28/2025 Active Fiber - as directed Orally A ctive Omeprazole 20 MG TAKE ONE CAPSULE BY MOUTH EVERY DAY; Duration: 90 Active Fluticasone Propionate 50 MCG/ACT 1 spray in each nostril Nasally Twice a day Active Tamsulosin HCl 0.4 MG TAKE ONE CAPSULE B Y MOUTH EVERY DAY; Duration: 90 Active Pamella Not-Taking Apple Cider Vinegar Active Cinnamon 500 MG as directed Orally Not-Taking Zinc 22.5 MG as directed Orally Active Immunizations Vaccine Route Administration Date Status Comme nts Influenza IM Intramuscular 09/10/2016 Administered Influenza, high dose seasonal Unknown 08/12/2019 Administered Influenza, seasonal, injectable (split), for 3 yrs and up Unknown 08/17/2018 Administered DMRDC-21-Jycvsn Vaccine Unknown 11/10/2020 Administered WIDKN-85-Bsqzev Vaccine Unknown 12/03/2020 Administered *Td (adult) preservative free Unknown 10/05/2000 Administered *Td (adult) preservative free Unknown 03/23/2013 Administered *Td IM Intramuscular 08/13/2023 Administered *PREVNAR 20 IM Intramuscular 08/16/2024 Administered *Influenza-Medicare-AS IM Intramuscular 07/08/2021 Adminis tered *Influenza-Medicare-AS IM Intramuscular 07/31/2022 Adminis tered *Whafaepej-Iulnsmv-Bcdl Dose-65+ IM Intramuscular 08/16/2024 Administered *Vwelqkuve-Pkusdbg-Ggxt Dose-65+ IM Intramuscular 08/03/2025 Administered *Influenza, High Dose Seasonal, Quadrivatent IM Intramuscular 08/13/2023 Administered Influenza-Afluria (IIV4) IM Intramuscular 08/13/2017 Admin istered Influenza-Afluria (IIV4) Unknown 07/13/2020 Administere d Pneumococcal polysaccharide PCV 13 IM Intramuscular 09/10/2016 Administered Pneumococcal polysaccharide PPV23 Unknown 05/18/2008 Administered [...] Due To Decreased Activity From Foot Issues Weight: Weight Increased By About 8 Lbs Due To Decreased Activity From Foot Issues Tobacco use: Does not smoke Exercise habits: Walking for exercise Living situation: Lives with a recently adopted rescue dog Problems Problem Type SNOMED Code ICD Code Onset Dates Problem Status W/U Status Risk Notes Problem Vitamin D deficiency (66665493) Vitamin D deficiency, unspecified (E55.9) Active confirmed Problem Mixed hyperlipidemia (426733136) Mixed hyperlipidemia (E78.2) Active confirmed Problem Tobacco user (202105706) Nicotine dependence, cigarettes, 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) Active confirmed Problem 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 Problem Idiopathic peripheral autonomic neuropathy (22578920) Other idiopathic peripheral autonomic neuropathy (G90.09) Active confirmed Problem Sensorineural hearing loss of bilateral ears (disorder) (822057756) Sensorineural hearing loss, bilateral (H90.3) Active confirmed Problem Hearing loss (38397698) Unspecified hearing loss, left ear (H91.92) Active confirmed Problem Disorder of acoustic nerve (30826236) 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) Active confirmed Problem Disorder of acoustic nerve (40104608) Disorders of left acoustic nerve (H93.3X2) Active confirmed Problem Chronic kidney disease due to hypertension (742639697873118 ) Hypertensive chronic kidney disease with stage 1 through stage 4 chronic kidney disease, or unspecified chronic kidney disease (I12.9) Active confirmed Problem Chronic rhinitis (39328193) Chronic rhinitis (J31.0) Active confirmed Problem Gastro-esophagea l reflux disease without esophagitis (528040839) Gastro-esophagea l reflux disease without esophagitis (K21.9) Active confirmed Problem Osteoarthritis of knee (590888072) Unilateral primary osteoarthritis, left knee (M17.12) Active confirmed Problem Osteoarthritis of knee (397885679) Osteoarthritis of knee, unspecified (M17.9) Active confirmed Problem Localized, primary osteoarthritis of the shoulder region (101306577) Primary osteoarthritis, right shoulder (M19.011) Active confirmed Problem Lumbosacral spondylosis without myelopathy (71178320) Other spondylosis with radiculopathy, lumbar region (M47.26) Active confirmed Problem Lumbosacral spondylosis without myelopathy (74061302) Spondylosis without myelopathy or radiculopathy, lumbar region (M47.816) Active confirmed Problem Chronic kidney disease stage 2 (373601413) Chronic kidney disease, stage 2 (mild) (N18.2) Active confirmed Problem Impaired fasting glucose (634607712) Impaired fasting glucose (R73.01) Active confirmed Problem Lower urinary tract symptoms due to benign prostatic hypertrophy (16287659350686) Benign prostatic hyperplasia with lower urinary tract symptoms (N40.1) Active confirmed Problem Prediabetes (449411984) Prediabetes (R73.03) Active confirmed Problem Elevated PSA (089631127) Elevated prostate specific antigen [PSA] (R97.20) Active confirmed Problem 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 Protrusion of prostate into bladder by cystoscopy evaluation Problem Epidemic vertigo (136760458) Vestibular neuronitis, right ear (H81.21) Problem resolved confirmed Problem COVID19 TON-Virus Identified (U07.1) Problem resolved confirmed Vital Signs Heart Rate 71 /min 05/30/2025 Temperature 97.8 degrees Fahrenheit 05/30/2025 Blood pressure diastolic 70 mm Hg 06/27/2025 Oximetry 98 % 05/30/2025 Height 67.5 in 06/27/2025 Blood pressure systolic 154 mm Hg 06/27/2025 Weight 179 lbs 06/27/2025 BMI 27.62 kg/m2 06/27/2025 Encounters Encounter Location Date Provider Diagnosis Nato Barragan MD [address] [id number] 08/16/2024 Nato Barragan Encounter for genera l [...] and Postnasal drip R09.82 Nato Barragan MD [address] [id number] 05/15/2025 Nato Barragan Hypertensive chronic kidney disease [...] other preprocedural examination Z01.818 Nato Barragan MD [address] [id number] 05/30/2025 Nato Barragan Hypertensive chronic kidney disease with stage 1 through stage 4 chronic kidney disease, or unspecified chronic kidney disease I12.9 ; Chronic kidney disease, stage 2 (mild) N18.2 ; Prediabetes R73.03 ; Elevation of levels of liver transaminase levels R74.01 and Vitamin D deficiency, unspecified E55.9 Nato Barragan MD [address] [id number] 06/27/2025 Nato Barragan Hypertensive chronic kidney disease with stage 1 through stage 4 chronic kidney disease, or unspecified chronic kidney disease I12.9 ; Chronic kidney disease, stage 2 (mild) N18.2 ; Prediabetes R73.03 ; Elevation of levels of liver transaminase levels R74.01 ; Vitamin D deficiency, unspecified E55.9 ; Mixed hyperlipidemia E78.2 and Chronic rhinitis J31.0 Nato Barragan MD [address] [id number] 08/03/2025 Nato Barragan Encounter for immunization Z23 Nato Barragan MD [address] [id number] 08/24/2024 Nato Barragan Subacute cough R05.2 Nato Barragan MD [address] [id number] 08/25/2024 Nato Barragan MD [address] [id number] 09/07/2024 Nato Barragan MD [address] [id number] 10/17/2024 Nato Barragan MD [address] [id number] 05/15/2025 Nato Barragan MD [address] [id number] 05/31/2025 Nato Barragan MD [address] [id number] 06/23/2025 Nato Barragan MD [address] [id number] 06/28/2025 Nato Barragan MD [address] [id number] 07/13/2025 Nato Barragan MD [address] [id number] 07/24/2025 Nato Barrgaan Assessments Encounter Date Diagnosis (ICD Code) Assessment Notes Treatment Notes Treatment Clinical Notes Section Notes 08/24/2024 Subacute cough (ICD-10 - R05.2) 05/15/2025 [...] function value discussed and reassured as stable. 06/27/2025 Hypertensive chronic kidney disease with stage 1 through stage 4 chronic kidney disease, or unspecified chronic kidney disease (ICD-10 - I12.9) Home blood pressure readings range from 134 to 160. Office blood pressure measured at 154/70. Stress contributes to higher readings. Current medication regimen questioned for effectiveness. - Start Amlodipine 5 mg daily. - Continue current antihypertensive regimen. - Monitor blood pressure at home. - Follow-up appointment scheduled in September. 06/27/2025 Chronic kidney disease, stage 2 (mild) (ICD-10 - N18.2) GFR in the 60s, consistent with CKD stage 2. Kidney function panel reviewed and will be repeated. - Order kidney function panel in September. 08/03/2025 Encounter for immunization (ICD-10 - Z23) 08/16/2024 Hypertensive chronic kidney disease with stage 1 through stage 4 chronic kidney disease, or unspecified chronic kidney disease (ICD-10 - I12.9) Stable at present. Continue current medical therapy. 08/16/2024 Encounter for general adult medical examination without abnormal findings (ICD-10 - Z00.00) General healthcare up-to-date. Check routine labs.Healthcare proxy and MOST form already on file 08/16/2024 Chronic kidney disease, stage 2 (mild) (ICD-10 - N18.2) Stable estimated GFR in the 70s. Continue current medical therapy and control of comorbidities of hypertension 06/27/2025 Prediabetes (ICD-10 - R73.03) A1C measured at 5.7, consistent with prediabetes. History of occasional high sugar readings. Lifestyle modification recommended. - Encourage exercise and dietary management. - Order blood glucose test in September. 05/30/2025 Prediabetes (ICD-10 - R73.03) Stable on prior labs as reviewed. Encourage exercise to maintain control 05/15/2025 Prediabetes (ICD-10 - R73.03) Stable on prior labs as reviewed. Encourage exercise to maintain control 05/15/2025 Gastro-esophageal reflux disease without esophagitis (ICD-10 [...] that may have caused an transient transaminitis 06/27/2025 Elevation of levels of liver transaminase levels (ICD-10 - R74.01) Liver function was off slightly on prior labs. No clear etiology identified. Repeat testing planned. - Order liver function tests in September. 08/16/2024 Gastro-esophageal reflux disease without esophagitis (ICD-10 - K21.9) Symptomatically controlled at present 08/16/2024 Other spondylosis with radiculopathy, lumbar region (ICD-10 - M47.26) He still has ongoing issues with his knees and other joints. Continue follow-up with orthopedics on an as needed basis 05/30/2025 Vitamin D deficiency, unspecified (ICD-10 - E55.9) Vitamin D level reviewed. Patient confirmed ongoing supplementation. - Continue Vitamin D supplementation. 06/27/2025 Vitamin D deficiency, unspecified (ICD-10 - E55.9) Vitamin D level at 55, above target. Continued supplementation recommended. - Continue vitamin D supplementation. 05/15/2025 Other spondylosis with radiculopathy, lumbar region (ICD-10 - M47.26) Still has ongoing issues with some stiffness in his knees.However this does not sound as if he has any persisting radicular symptoms. 06/27/2025 Mixed hyperlipidemia (ICD-10 - E78.2) Cholesterol is high; LDL goal is under 70. Recent LDL values around 97-102. Statin therapy recommended to reduce cardiovascular risk. - Start statin therapy. - Order lipid panel in September. 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 Continue supportive care. 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 He has intermittent burning and paresthesias. 08/16/2024 Impaired fasting glucose (ICD-10 - R73.01) Stable on prior labs. Recheck status 06/27/2025 Chronic rhinitis (ICD-10 - J31.0) Congestion reported by the patient, likely related to a cold. No evidence of allergy as primary cause. Symptoms are intermittent and coincide with community prevalence of colds. - Continue Flonase. - Use plain Mucinex (without decongestant). 05/15/2025 Mixed hyperlipidemia (ICD-10 - E78.2) Stable on prior labs as reviewed with LDL that had been less than 100 but then increased recently. This can be reevaluated after his surgery at next pending office visit 05/15/2025 Elevated prostate specific antigen [PSA] (ICD-10 - R97.20) Stable at present. Given lack of progression he is at low risk for malignancy 08/16/2024 Mixed hyperlipidemia (ICD-10 - E78.2) Fair control with LDL less than 100. 08/16/2024 Elevated prostate specific antigen [PSA] (ICD-10 - R97.20) His PSA was mildly elevated. Can recheck status to verify that there is stability 05/15/2025 Nicotine dependence, cigarettes, in remission (ICD-10 - F17.211) Remains in remission 05/15/2025 Vitamin D deficiency, unspecified (ICD-10 - [...] syntax. Also labs were reviewed with patient. 06/27/2025 Other This note was created with a combination of voice dictation recognition software in combination with voice recognition software with AI as allowed by patient consent. It may contain errors of grammar and syntax. Also labs were reviewed with patient. Plan Of Treatment Pending Test Test Name Order Date MMR (Measles, Mumps, Rubella) Titer 06/0 03/2019 CBC 07/08/2021 CBC 12/05/2022 CBC 08/11/2023 COMPREHENSIVE METABOLIC PANEL 08/11/2023 COMPREHENSIVE METABOLIC PANEL 12/05/2022 COMPREHENSIVE METABOLIC PANEL 01/11/2021 COMPREHENSIVE METABOLIC PANEL 07/08/2021 COMPREHENSIVE METABOLIC PANEL 01/06/2022 GLYCOHEMOGLOBIN PROFILE 01/06/2022 GLYCOHEMOGLOBIN PROFILE 07/08/2021 GLYCOHEMOGLOBIN PROFILE 08/11/2023 GLYCOHEMOGLOBIN PROFILE 12/05/2022 HEPATITIS C VIRUS SCREEN 08/11/2023 HEPATITIS C VIRUS SCREEN 02/27/2023 HEPATITIS C VIRUS SCREEN 07/31/2022 LIPID PROFILE 01/06/2022 LIPID PROFILE 08/11/2023 LIPID PROFILE 07/08/2021 LIPID PROFILE 01/11/2021 LYME DISEASE ANTIBODIES 02/27/2023 PROSTATIC SPECIFIC ANTIGEN 09/12/2019 PROSTATIC SPECIFIC ANTIGEN SCR PROSTATIC SPECIFIC ANTIGEN SCR RHEUMATOID FACTOR 02/27/2023 URINALYSIS 08/11/2023 URINALYSIS 07/08/2021 URINALYSIS 12/05/2022 URINALYSIS 01/06/2022 MICROALB/CREAT RATIO, RANDOM 12/05/2022 MICROALB/CREAT RATIO, RANDOM 08/11/2023 VITAMIN D, 25-HYDROXY 08/11/2023 VITAMIN D, 25-HYDROXY 12/05/2022 VITAMIN D, 25-HYDROXY 07/08/2021 VITAMIN D, 25-HYDROXY 09/12/2019 VITAMIN D, 25-HYDROXY 11/09/2018 VITAMIN D, 25-HYDROXY 12/24/2020 VITAMIN D, 25-HYDROXY 03/10/2019 VITAMIN D, 25-HYDROXY 07/31/2022 VITAMIN D, 25-HYDROXY 01/06/2022 COLOGUARD 11/09/2018 COLOGUARD 07/31/2022 Immunofixation, Serum-[id number] 01/13/2024 Complement C4, Serum-[id number] 01/13/2024 Complement C3, Serum-458801 01/13/2024 THAO by IFA Rfx Titer/Pattern-383226 01/03 Comp. Metabolic Panel ([id number] 2024 MPO+IA-3 Reflex ANCA on High-[id number] 01/03 PSA Total+% Free-[id number] 01/13/2024 Next Appt Details Provider Name:Nato Barragan , 09/06/2025 11:00:00 AM, [address] [place] [address], [place] [address], [place], [place], [phone], Insurance Providers Payer Name Payer Address Payer Phone Subscriber Number Group Number Insured Name Patient Relationship to Insured Coverage Start Date Coverage End Date [employer]AN [address] [facility] [address] [id number] Yogesh Last Self - patient is the [...] M 19.011 Neoplasm of uncertain behavior of bladde r (resolved 07/31/2022) COVID19 TON-Virus Identified (resolved [...] Knee Replacement, LEFT 04/2022 cataract surgery 06/2024 arthroscopy shoulder 06/2025 Arthroscopic surgery, right shoulder, three spots addressed - date not specified Rotator cuff surgery, right shoulder, prior to current surgery - date not specified Hospitalization History Reason Date(Month/Year) Knee Replacement, LT 04/2022
--- OUTSIDE RECORDS SUMMARY | 2025-08-15 13:40 | XMS_ITS | Patient Health Record ---
[facility] Address [address] [place] [address] Care Team Providers Care Instrument Mechanic Weapons System Name Role Phone Nato Barragan MD Primary Care Provider Unavail able Steven Willett Unavailable [phone] Reason For Referral No Information Medications Medication [...] Notes Problem Hallux valgus of right foot (6431177797) Hallux valgus of right foot (M20.11) Active confirmed Problem Hallux valgus of left foot (0602041753) Hallux valgus of left foot (M20.12) Active confirmed Encounters Encounter [facility] Date [facility] [place] [address] 12/08/2024 [facility] [place] [address] 12/12/2024 Steven Willett Plan Of Treatment No Information Insurance Providers Payer Name Payer Address Payer Phone Subscriber Number Group Number Insured Name Patient Relationship to Insured Coverage Start Date Coverage End Date [employer] [place] [employer]vantage [address] [facility] [place] [address] [id number] Fabian Last Self - patient is the insured Medical (General) History Medical History History ICD Code Arthritis Back,Hip,and Knee pain Broken bones Cataracts Numbness Reflux ( GERD) sinusitis Measles Mumps Chicken pox Joint implants/screws Spondylosis Radiculopathy Surgical History Surgery Date(Month/Year) Fracture Tibia 1975 Torn Tendon Right Wrist 1979 Relocate [employer]orsche Nerve Right Elbow Deviated Septum Repair GERD Hiatal Hernia 2000 Total Hip Replacement L & R 07/10/2022,0 04/10/2011 Lumbar Fusion Impingement of rotator cuff, right Repair of 2 abdominal Hernias 2015,2016 Torn Retina Repair Chalazion Repair Right Eyelid Total Knee Replacement 2020 cataract surgery
--- OUTSIDE RECORDS SUMMARY | 2025-08-15 13:40 | XMS_ITS | Patient Health Record ---
Author Organization [facility] ma Billing Info Address [address] [place] [id number] Support Name Relationship Address Phone Fabian Schrader Jr Guarantor Unknown Reason For Referral No Information Problems Problem Type SNOMED Code ICD Code Onset Dates Problem Status W/U Status Risk Notes Problem [id number] Impacted cerumen (380.4) Active confirmed Migrated-Pr oblemList-3 [id number]- 01/13/2014 Plan Of Treatment No Information Insurance Providers Payer Name Payer Address Payer Phone Subscriber Number Group Number Insured Name Patient Relationship to Insured Coverage Start Date Coverage End Date [place] [address] [facility] [place] [id number] Fabian Schrader Jr Self - patient is the insured 3 3 [facility] [address] [facility] [place] [place] [id number] Fabian Schrader Jr Self - patient is the insured 3 3
== END 2025-08-15 11:53 | disposition home or self-care (01) ==
LOC: HO.HOS 11:36
PROVIDERS: PCP Internal Medicine; Visit Provider Orthopaedic Surgery
DX: M25.511 Pain in right shoulder (principal)
CPT/HCPCS: 99024